=== PATIENT | female | born 1995 | race Caucasian/White ===

== ENCOUNTER 2018-06-23 15:08 | Observation (INO) | payer BC ==
[2018-06-23] MEDS ORDERED: Famotidine 20 MG/2 ML SDV IVPUSH ONE (15:09)
[2018-06-23] MEDS ORDERED: Sodium Chloride 0.9% 10 ML Syringe FLUSH PRN ×2 (15:09→17:01)
--- NOTE | 2018-06-23 15:09 | EDM.PDOC ---
ED HPI GENERAL MEDICAL PROBLEM - General Chief Complaint: Syncope Stated Complaint: Syncope with possible seizure Time Seen by Provider: 06/23/18 15:09 Source of Information: Reports: Patient, Family (Maternal aunt, Saumya), Old Records ([facility] EMR. 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 The laundry room was not apparently overheated with the patient somewhat nauseous since yesterday with nonspecific intermittent right lower quadrant abdominal pain since yesterday afternoon. Per draw hand and halfway staff patient was somewhat diaphoretic with patient having a heart flutter sensation and postictal sedation after the above episode. The patient is a somewhat poor historian secondary to her current postictal sedation. The nursing staff did not notice any seizure activity or urine/stool incontinence with the patient now complaining of a 7/10 generalized headache and nausea. She does have a history of recurrent migraine headaches associated with apparent recurrent syncopal episodes in the past with no significant workup to this point other than apparent negative CT scans of the head. The patient denies any chest pain/ pressure, heart flutter, dizziness, orthostasis, orthopnea, diaphoresis, paresthesias, recent decreased exercise tolerance, or any other anginal-type symptoms. No recent history of heartburn, emesis, diarrhea, melena, gross hematochezia, or any food intolerance, including fatty foods, etc. with no abdominal pain at this time. She also denies any current colic, gross hematuria , or other UTI symptoms. The patient also denies any recent fever, cough, wheezing, dyspnea, etc.. No apparent history of significant fall, injury, neck/ back pain, paresthesias, or other change in her neurological status. Note no treatment in route by the paramedics. Stat Accu-Chek at the halfway by halfway staff was 72 mg percent. Onset: Today, Sudden, Unknown/Unsure Onset Date: 06/23/18 Onset Time: 14:30 Duration: Improving, Other (Duration of loss of consciousness unknown) Location: Reports: Head (Headache), Generalized. Denies: Face, Neck, Chest, Abdomen, Back, Pelvis, Upper Extremity, Left, Upper Extremity, Right, Radiates to Quality: Reports: Same as Previous Episode, Throbbing Severity: Moderate Improves with: Reports: None Worsens with: Reports: None Context: Reports: Other (As above). Denies: Sick Contact, Trauma Associated Symptoms: Reports: Confusion (Postictal sedation), Diaphoresis, Headaches, Malaise, Nausea/Vomiting, Seizure (Possible), Syncope. Denies: Chest Pain, Cough, Fever/Chills, Loss of Appetite, Shortness of Breath, Weakness Treatments ENGINEER PROCESS: Reports: Other (see below) (None) Bilateral Headache Pain Score (Numeric/FACES): 7 - Related Data Allergies Allergy/AdvReac Type Severity Reaction Status Date / Time bee venom protein (honey bee) Allergy Anaphylactic Verified 06/23/18 15:11 Shock Home Meds: Home Meds Non-Formulary Medication [NF Drug] 1 applicful VAG ASDIRECTED 06/23/18 [History] Triamcinolone Acetonide [Triamcinolone Acetonide 0.1% Crm] 1 applic .XX BID PRN 06/23/18 [History] Past Medical History HEENT History: Reports: Allergic Rhinitis, Impaired Vision, Otitis Media, Other (See Below). Denies: Glaucoma, Hard of Hearing, Macular Degeneration, Retinal Detachment Other HEENT History: Patient wears glasses with right-sided strabismus divergence corrected with glasses. Allergic rhinitis to "everything." Recurrent otitis media with surgeries as below. Cardiovascular History: Reports: Arrhythmia, Heart Murmur, Syncope, Other (See Below). Denies: Afib, Aneurysm, Blood Clots/VTE/DVT, CAD, High Cholesterol, Hypertension, [place], PVD Other Cardiovascular History: Recurrent syncope possibly secondary to undiagnosed seizure activity versus migraine equivalent. The patient does have a history of recurrent nonspecific probable functional murmur and possible sinus arrhythmia? She does not know her cholesterol status. Respiratory History: Reports: Bronchitis, Recurrent, Intubation, Previous, Other (See Below). Denies: Asthma, Intubation, Difficult, PE, Pneumothorax, Sleep Apnea Other Respiratory History: Reactive airway disease secondary to infection with apparent negative workup for asthma. Gastrointestinal History: Reports: Other (See Below). Denies: Celiac Disease, Cholelithiasis, Chronic Constipation, Chronic Diarrhea, Fecal Incontinence, Gastritis, GERD, GI Bleed, Hepatitis, Hiatal Hernia, Irritable Bowel Syndrome, Jaundice, Pancreatitis, PUD Other Gastrointestinal History: Chronic intermittent abdominal migraines Genitourinary History: Reports: UTI, Recurrent. Denies: Acute Renal Failure, Chronic Renal Insuffiency, Renal Calculus, STD, Urinary Incontinence DEVELOPMENT PROFESSIONAL History: Reports: Dysfunctional Uterine Bleeding. Denies: Endometriosis , Fibroids, Spontaneous : 0 LMP (Approximate): Other (See Below) (LMP unknown; history of ovarian cysts.) Musculoskeletal History: Reports: Arthritis, Back Pain, Chronic, Osteoarthritis. Denies: Fracture, Gout, Neck Pain, Chronic, RA, SLE Neurological History: Reports: Headaches, Chronic, Migraines, Seizure, Other ( See Below). Denies: Cerebral Aneurysms, Concussion, CVA, Head Trauma, MS, Parkinson's, TIA Other Neuro History: Questionable recurrent seizures with limited negative workup to this point as above starting at about age 15. Psychiatric History: Reports: Anxiety, Depression, PTSD. Denies: Abuse, Victim of, ADD, ADHD, Addiction, Psych Hospitalization(s), Suicide Attempt, Suicidal Ideation Endocrine/Metabolic History: Reports: Obesity/BMI 30+, Other (See Below). Denies: Diabetes, Type I, Diabetes, Type II, Hypothyroidism, IDDM Other Endocrine/Metabolic History: Unknown type of sugar disorder-hypoglycemia versus glucose intolerance? Hematologic History: Reports: None. Denies: Anemia, Blood Transfusion(s), Heparin Induced Thrombocytopenia Immunologic History: Reports: None. Denies: AIDS, HIV, SLE Oncologic (Cancer) History: Reports: None. Denies: Basal Cell Carcinoma, Breast , Cervix, Hodgkin's Lymphoma, Leukemia, Lymphoma, Malignant Melanoma, Non- Hodgkin's Lymphoma, Squamous Cell Carcinoma Dermatologic History: Reports: Psoriasis, Other (See Below). 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 - Infectious Disease History Infectious Disease History: Reports: Chicken Pox, Shingles. Denies: C-Difficile , Measles, Meningitis, Mononucleosis, MRSA, Mumps, Pertussis (Whooping Cough), Rubella, Scarlet Fever, TB, VRE - Past Surgical History Head Surgeries/Procedures: Reports: None HEENT Surgical History: Reports: Myringotomy w Tube(s), Other (See Below). Denies: Adenoidectomy, Cataract Surgery, Eye Surgery, Laser Surgery, LASIK, Naso -Sinus Surgery, Oral Surgery, Tonsillectomy Other HEENT Surgeries/Procedures: PE tubes as an then at age 8 and then at age 18. Cardiovascular Surgical History: Reports: None. Denies: Varicose Respiratory Surgical History: Reports: None. Denies: Thoracentesis GI Surgical History: Reports: None. Denies: Appendectomy, Cholecystectomy, Colonoscopy, EGD, Hernia, Abdominal, Hernia, Inguinal, Hernia Repair/Other Female Surgical History: Reports: None. Denies: Breast Biopsy, D&C, Tubal Ligation Endocrine Surgical History: Reports: None. Denies: Thyroid Biopsy Neurological Surgical History: Denies: C-Spine, Discectomy, Laminectomy, Lumbar Spine, Sacral Spine, Spinal Fusion, Thoracic Spine, Vertebroplasty Musculoskeletal Surgical History: Reports: None. Denies: Arthroscopic Procedure , Carpal Tunnel, Ganglion Cyst, Joint Replacement, ORIF, Shoulder Surgery Oncologic Surgical History: Reports: None Dermatological Surgical History: Reports: None - Past Imaging History Past Imaging History: Reports: CAT Scan (Apparent multiple previous negative CT scans of the head), PFT (At age 8), Ultrasound (Pelvic ultrasound on 02/06/16) Social & Family History - Family History HEENT: Reports: None. Denies: Glaucoma, Macular Degeneration, Retinal Detachment Cardiac: Reports: Syncope, Other (See Below). Denies: Afib, Aneurysm, Arrhythmia, Blood Clots/VTE/DVT, CAD, Heart Failure, Heart Murmur, High Cholesterol, Hypertension, PVD/COD Other Cardiac Family History: Sister, maternal grandmother, and maternal aunt with history of recurrent syncopal episodes/fainting episodes possibly from seizures. Respiratory: Reports: Asthma, COPD, Sleep Apnea, Other (See Below). Denies: PE , Pneumothorax Other Respiratory Family Hisory: Asthma in maternal uncle. Maternal aunt with COPD and sleep apnea. GI: Reports: Irritable Bowel Syndrome, Other (See Below). Denies: Celiac Disease, Cholelithiasis, Colon Polyps, GERD, GI bleed, Inflammatory Bowel Disease, PUD Other GI Family History: Irritable bowel bowel syndrome in maternal aunt. : Reports: Dialysis, Renal Disease/Insufficiency. Denies: Renal Calculus Other Family History: Paternal grandfather with renal failure and dialysis. OBGYN: Reports: Endometriosis, Other (See Below). Denies: Recurrent Spontaneous Other OBGYN Family History: Maternal aunt with endometriosis. Musculoskeletal: Reports: None. Denies: Gout, RA, SLE Neurological: Reports: CVA, Migraines, Seizure, Other (See Below). Denies: Alzheimers Disease, Cerebral Aneurysms, Dementia, MS, Parkinson's, TIA Other Neurological Family History: Maternal uncle with migraine headaches. Maternal uncle with CVA. Recurrent seizure disorder in mother, maternal grandmother, and maternal aunt. Psychiatric: Reports: Anxiety, Bipolar, Depression, Psych Hospitalization(s), Suicide Attempt, Other (See Below). Denies: Abuse, Victim of, ADD, ADHD, Psychosis, PTSD, Schizophrenia Other Psychiatric Family History: Parents with anxiety depression disorder with mother having bipolar disorder and both parents having suicidal ideation and psychiatric hospitalization. Endocrine/Metabolic: Reports: Diabetes, type II, IDDM, Other (See Below). Denies: Diabetes, Gestational, Diabetes, Type I, Diabetes Mellitus, Type 3c, Hypothyroidism Other Endocrine/Metabolic Family History: Paternal also with IDDM. Hematologic: Reports: None. Denies: Anemia, SLE Immunologic: Reports: None. Denies: AIDS, HIV, SLE Dermatologic: Reports: Other (See Below) Other Dermatologic Family History: Maternal aunt and cousin with is lichen planus. Oncologic: Reports: Breast, Lung, Other (See Below). Denies: Cervix, Colon, Hodgkin's Lymphoma, Leukemia, Lymphoma, Non-Hodgkin's Lymphoma, Ovarian, Skin, Uterine Other Oncologic Family History: Maternal Aunt with breast cancer. Maternal grandmother with lung cancer with history of tobacco use. - Tobacco Use Smoking Status *Q: Never Smoker Tobacco Use Within Last Twelve Months: No Used Tobacco, but Quit: No Smoking Cessation Information Provided To Patient: No Second Hand Smoke Exposure: No Second Hand Smoke Education Provided: No - Caffeine Use Caffeine Use: Reports: Soda (5 sodas per week), Tea (1 glass per week). Denies : Coffee, Energy Drinks - Alcohol Use Alcohol Use History: No Days Per Week of Alcohol Use: 0 Number of Drinks Per Day: 1 Number of Drinks Per Day Comment: Usually wine 3 times per month. No previous DWIs, problems with alcohol abuse, etc. Total Drinks Per Week: 0 Alcohol Use in Last Twelve Months: Yes Alcohol Use Frequency: Rarely - Recreational Drug Use Recreational Drug Type: Reports: Marijuana/Hashish (Started at age 18 and uses daily, 1 bowl per day). 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 ED EXAM, NEURO - Physical Exam Exam: See Below Exam Limited By: Altered Mental Status (Postictal sedation) General Appearance: No Apparent Distress, Anxious (Mild), Lethargic (Mildly) Eye Exam: Bilateral Eye: EOMI, Normal Fundi, Normal Inspection (No nystagmus. Patient wearing glasses) Ears: Normal External Exam, Normal Canal, Hearing Grossly Normal, Normal TMs Nose: Normal Inspection, Normal Mucosa, No Blood Throat/Mouth: Normal Inspection, Normal Lips, Normal Teeth, Normal Gums, Normal Oropharynx, Normal Voice, No Airway Compromise. No: Dysphagia, Perioral Cyanosis Head Exam: Atraumatic, Normocephalic. No: Facial Swelling, Facial Tenderness, Sinus Tenderness Neck: Normal Inspection, Supple, Non-Tender, Full Range of Motion. No: Carotid Bruit, Lymphadenopathy (L), Lymphadenopathy (R), Thyromegaly Respiratory/Chest: No Respiratory Distress, Lungs Clear, Normal Breath Sounds, No Accessory Muscle Use, Chest Non-Tender. No: Pleural Rub, Retractions Cardiovascular: Normal Peripheral Pulses, Regular Rate, Rhythm, No Edema, No Gallop, No JVD, No Murmur, No Rub. No: Gallop/S3, Gallop/S4, Friction Rub GI/Abdominal: Normal Bowel Sounds, Soft, Non-Tender, No Organomegaly, No Distention, No Abnormal Bruit, No Mass, Pelvis Stable, Other (Scars from periumbilical studs). No: Guarding (Female) Exam: Deferred Rectal (Female) Exam: Deferred Neurological: Normal Dorsiflexion, CN II-XII Intact, Normal Plantar Flexion, Normal Reflexes (Negative Babinski's, finger to nose, and pronator rotation tests. No evidence of facial paresis, tongue deviation, orthostasis, etc.. Excellent reverse thought processes.), Other (Mild postictal sedation improving during emergency room evaluation) Back Exam: Normal Inspection, Full Range of Motion. No: CVA Tenderness (L), CVA Tenderness (R), Muscle Spasm Extremities: Normal Inspection, Normal Range of Motion, Non-Tender, No Pedal Edema, Normal Capillary Refill. No: Quinton's Sign Psychiatric: Anxious (Mild), Depressed Mood (Borderline) Skin Exam: Warm, Dry, Intact, Normal Color, No Rash. No: Diaphoretic, Jaundice , Pallor, Wound/Incision EKG INTERPRETATION EKG Date: 06/23/18 Time: 15:48 Rhythm: NSR Rate (Beats/Min): 66 [place]: Normal (Neutral cardiac axis) P-Wave: Present QRS: Normal (QRS is 0.09 seconds with T-wave inversion in leads V1 and possibly lead 3) ST-T: Normal QT: Normal NM/PQ Interval: NM interval of 0.23 seconds representing a first degree AV block with mild poor R-wave progression in the anterior leads. Comparison: NA - No Prior EKG EKG Interpretation Comments: 1. No acute ischemic changes 2. First-degree AV block Course - Vital Signs Last Recorded V/S: Last Vital Signs Temp 36.8 C 06/23/18 15:33 Pulse 60 06/23/18 16:21 Resp 22 H 06/23/18 16:21 BP 124/65 06/23/18 16:21 Pulse Ox 98 06/23/18 16:21 Vital Signs - 24 hr 06/23/18 06/23/18 06/23/18 15:10 15:32 15:33 Temperature [ 36.8 C Temporal] Pulse, 68 64 92 Peripheral [ Right Pulse Oximetry] Respiratory 18 20 18 Rate Blood Pressure 120/56 L 136/60 129/84 [Right Upper Arm] O2 Sat by Pulse 100 98 100 Oximetry 06/23/18 06/23/18 15:47 16:21 Temperature [ Temporal] Pulse, 64 60 Peripheral [ Right Pulse Oximetry] Respiratory 20 22 H Rate Blood Pressure 120/56 L 124/65 [Right Upper Arm] O2 Sat by Pulse 99 98 Oximetry - Orders/Labs/Meds Orders: Active Orders 24 hr Category Date Time Status Cardiac Monitoring [RC] STAT Care 06/23/18 15:10 Active EKG Documentation Completion [RC] ASDIRECTED Care 06/23/18 15:10 Active NIH Stroke Scale [RC] ASDIRECTED Care 06/23/18 15:10 Active Oxygen Therapy, ED [RC] PRN Care 06/23/18 15:10 Active Peripheral IV Care [RC] . DIRECTED Care 06/23/18 15:10 Active Pulse Oximetry [RC] CONTINUOUS Care 06/23/18 15:10 Active Up With Assistance [RC] ASDIRECTED Care 06/23/18 15:10 Active Vital Signs [RC] PFP Care 06/23/18 15:10 Active Nothing per Oral Now Diet [DIET] Diet 06/23/18 Breakfast Active Chest 1V Frontal [CR] Stat Exams 06/23/18 15:10 Taken Head wo Cont [CT] Stat Exams 06/23/18 15:10 Taken CULTURE URINE [RM] Routine Lab 06/23/18 16:10 Received DRUG SCREEN, URINE [URCHEM] Stat Lab 06/23/18 16:10 Ordered PROLACTIN [REF] Stat Lab 06/23/18 15:15 Received UA W/MICROSCOPIC [URIN] Stat Lab 06/23/18 16:10 Ordered Sodium Chloride 0.9% [Saline Flush] Med 06/23/18 15:09 Active 10 ml FLUSH ASDIRECTED PRN Obtain Past Medical Record [OM.PC] Stat Oth 06/23/18 15:10 Active Peripheral IV Insertion Adult [OM.PC] Stat Oth 06/23/18 15:10 Ordered Resuscitation Status Stat Resus Stat 06/23/18 15:09 Ordered Medication Orders Sodium Chloride (Saline Flush) 10 ml FLUSH ASDIRECTED PRN PRN Reason: Keep Vein Open Labs: Laboratory Tests 06/23/18 06/23/18 06/23/18 Range/Units 15:11 15:15 15:15 WBC 10.9 H (4.0-10.2) K/uL RBC 4.75 (3.77-5.09) M/uL Hgb 14.1 (11.7-15.5) g/dL Hct 42.4 (34.0-46.0) % MCV 89.3 (84.0-98.0) fL MCH 29.7 (28.2-33.3) pg MCHC 33.3 (31.7-36.0) g/dL RDW 13.1 (11.2-14.1) % Plt Count 250 (150-350) K/uL Neut % (Auto) 67.3 (45.0-80.0) % Lymph % (Auto) 21.4 (10.0-50.0) % [place] % (Auto) 9.3 (2.0-14.0) % Eos % (Auto) 1.7 (0.0-5.0) % Baso % (Auto) 0.3 (0.0-2.0) % Neut # (Auto) 7.32 H (1.40-7.00) K/uL Lymph # (Auto) 2.33 (0.50-3.50) K/uL [place] # (Auto) 1.01 H (0.00-1.00) K/uL Eos # (Auto) 0.19 (0.00-0.50) K/uL Baso # (Auto) 0.03 (0.00-0.20) K/uL PT 10.8 (9.8-11.7) SEC INR 1.0 APTT 25.2 (22.1-29.8) SEC D-Dimer, Quantitative (0-400) ng/mL Sodium (136-145) mmol/L Potassium (3.5-5.1) mmol/L Chloride (98-107) mmol/L Carbon Dioxide (21.0-32.0) mmol/L BUN (7-18) mg/dL Creatinine (0.51-1.17) mg/dL Est Cr Clr Drug Dosing mL/min Estimated GFR (MDRD) mL/min Glucose (74-106) mg/dL Lactic Acid (0.4-2.0) mmol/L Uric Acid (2.6-7.2) mg/dL Calcium (8.5-10.1) mg/dL Magnesium (1.8-2.4) mg/dL Total Bilirubin (0.2-1.0) mg/dL AST (15-37) U/L ALT (12-78) U/L Alkaline Phosphatase (46-116) IU/L Creatine Kinase (26-308) U/L Creatine Kinase Index (0.0-2.5) % CK-MB (CK-2) (0.00-3.60) ng/mL Troponin I (0.000-0.056) ng/mL NT-Pro-B Natriuret Pep (0-125) pg/mL Total Protein (6.4-8.2) g/dL Albumin (3.4-5.0) g/dL Amylase (25-115) U/L Lipase (73-393) U/L TSH, Ultra Sensitive (0.358-3.740) mIU/mL HCG, Qual (NEGATIVE) Specimen Type Urine Color Urine Appearance Urine pH (5.0-9.0) Ur Specific [place] (1.005-1.030) Urine Protein (NEGATIVE) mg/dL Urine Glucose (UA) (NEGATIVE) mg/dL Urine Ketones (NEGATIVE) mg/dL Urine Occult Blood (NEGATIVE) Urine Nitrite (NEGATIVE) Urine Bilirubin (NEGATIVE) Urine Urobilinogen (0.2-1.0) E.U./dL Ur Leukocyte Esterase (NEGATIVE) Urine RBC /HPF Urine WBC /HPF Ur Epithelial Cells /LPF Amorphous Sediment (0/HPF) /HPF Urine Bacteria (NONE TO FEW) /HPF Urine Mucus (NEGATIVE) /LPF Urine Opiates Screen (NEGATIVE) Urine Methadone Screen (NEGATIVE) U Acetaminophen Screen (NEGATIVE) Ur Barbiturates Screen (NEGATIVE) Ur Tricyclics Screen (NEGATIVE) Ur Phencyclidine Scrn (NEGATIVE) Ur Amphetamine Screen (NEGATIVE) U Methamphetamines Scrn (NEGATIVE) U Benzodiazepines Scrn (NEGATIVE) U Cocaine Metab Screen (NEGATIVE) U Marijuana (THC) Screen (NEGATIVE) Ethyl Alcohol 0.000 (0.000-0.080) g/dL 06/23/18 06/23/18 06/23/18 Range/Units 15:15 15:15 15:15 WBC (4.0-10.2) K/uL RBC (3.77-5.09) M/uL Hgb (11.7-15.5) g/dL Hct (34.0-46.0) % MCV (84.0-98.0) fL MCH (28.2-33.3) pg MCHC (31.7-36.0) g/dL RDW (11.2-14.1) % Plt Count (150-350) K/uL Neut % (Auto) (45.0-80.0) % Lymph % (Auto) (10.0-50.0) % [place] % (Auto) (2.0-14.0) % Eos % (Auto) (0.0-5.0) % Baso % (Auto) (0.0-2.0) % Neut # (Auto) (1.40-7.00) K/uL Lymph # (Auto) (0.50-3.50) K/uL [place] # (Auto) (0.00-1.00) K/uL Eos # (Auto) (0.00-0.50) K/uL Baso # (Auto) (0.00-0.20) K/uL PT (9.8-11.7) SEC INR APTT (22.1-29.8) SEC D-Dimer, Quantitative < 100 (0-400) ng/mL Sodium 138 (136-145) mmol/L Potassium 4.0 (3.5-5.1) mmol/L Chloride 104 (98-107) mmol/L Carbon Dioxide 27.7 (21.0-32.0) mmol/L BUN 11 (7-18) mg/dL Creatinine 0.65 (0.51-1.17) mg/dL Est Cr Clr Drug Dosing 107.37 mL/min Estimated GFR (MDRD) > 60 mL/min Glucose 93 (74-106) mg/dL Lactic Acid 1.1 (0.4-2.0) mmol/L Uric Acid 3.0 (2.6-7.2) mg/dL Calcium 9.1 (8.5-10.1) mg/dL Magnesium 1.7 L (1.8-2.4) mg/dL Total Bilirubin 0.3 (0.2-1.0) mg/dL AST 15 (15-37) U/L ALT 18 (12-78) U/L Alkaline Phosphatase 68 (46-116) IU/L Creatine Kinase 72 (26-308) U/L Creatine Kinase Index 0.6 (0.0-2.5) % CK-MB (CK-2) 0.40 (0.00-3.60) ng/mL Troponin I 0.000 (0.000-0.056) ng/mL NT-Pro-B Natriuret Pep 26 (0-125) pg/mL Total Protein 7.6 (6.4-8.2) g/dL Albumin 3.6 (3.4-5.0) g/dL Amylase 34 (25-115) U/L Lipase 105 (73-393) U/L TSH, Ultra Sensitive 0.804 (0.358-3.740) mIU/mL HCG, Qual (NEGATIVE) Specimen Type Urine Color Urine Appearance Urine pH (5.0-9.0) Ur Specific [place] (1.005-1.030) Urine Protein (NEGATIVE) mg/dL Urine Glucose (UA) (NEGATIVE) mg/dL Urine Ketones (NEGATIVE) mg/dL Urine Occult Blood (NEGATIVE) Urine Nitrite (NEGATIVE) Urine Bilirubin (NEGATIVE) Urine Urobilinogen (0.2-1.0) E.U./dL Ur Leukocyte Esterase (NEGATIVE) Urine RBC /HPF Urine WBC /HPF Ur Epithelial Cells /LPF Amorphous Sediment (0/HPF) /HPF Urine Bacteria (NONE TO FEW) /HPF Urine Mucus (NEGATIVE) /LPF Urine Opiates Screen (NEGATIVE) Urine Methadone Screen (NEGATIVE) U Acetaminophen Screen (NEGATIVE) Ur Barbiturates Screen (NEGATIVE) Ur Tricyclics Screen (NEGATIVE) Ur Phencyclidine Scrn (NEGATIVE) Ur Amphetamine Screen (NEGATIVE) U Methamphetamines Scrn (NEGATIVE) U Benzodiazepines Scrn (NEGATIVE) U Cocaine Metab Screen (NEGATIVE) U Marijuana (THC) Screen (NEGATIVE) Ethyl Alcohol (0.000-0.080) g/dL 06/23/18 06/23/18 06/23/18 Range/Units 15:15 16:10 16:10 WBC (4.0-10.2) K/uL RBC (3.77-5.09) M/uL Hgb (11.7-15.5) g/dL Hct (34.0-46.0) % MCV (84.0-98.0) fL MCH (28.2-33.3) pg MCHC (31.7-36.0) g/dL RDW (11.2-14.1) % Plt Count (150-350) K/uL Neut % (Auto) (45.0-80.0) % Lymph % (Auto) (10.0-50.0) % [place] % (Auto) (2.0-14.0) % Eos % (Auto) (0.0-5.0) % Baso % (Auto) (0.0-2.0) % Neut # (Auto) (1.40-7.00) K/uL Lymph # (Auto) (0.50-3.50) K/uL [place] # (Auto) (0.00-1.00) K/uL Eos # (Auto) (0.00-0.50) K/uL Baso # (Auto) (0.00-0.20) K/uL PT (9.8-11.7) SEC INR APTT (22.1-29.8) SEC D-Dimer, Quantitative (0-400) ng/mL Sodium (136-145) mmol/L Potassium (3.5-5.1) mmol/L Chloride (98-107) mmol/L Carbon Dioxide (21.0-32.0) mmol/L BUN (7-18) mg/dL Creatinine (0.51-1.17) mg/dL Est Cr Clr Drug Dosing mL/min Estimated GFR (MDRD) mL/min Glucose (74-106) mg/dL Lactic Acid (0.4-2.0) mmol/L Uric Acid (2.6-7.2) mg/dL Calcium (8.5-10.1) mg/dL Magnesium (1.8-2.4) mg/dL Total Bilirubin (0.2-1.0) mg/dL AST (15-37) U/L ALT (12-78) U/L Alkaline Phosphatase (46-116) IU/L Creatine Kinase (26-308) U/L Creatine Kinase Index (0.0-2.5) % CK-MB (CK-2) (0.00-3.60) ng/mL Troponin I (0.000-0.056) ng/mL NT-Pro-B Natriuret Pep (0-125) pg/mL Total Protein (6.4-8.2) g/dL Albumin (3.4-5.0) g/dL Amylase (25-115) U/L Lipase (73-393) U/L TSH, Ultra Sensitive (0.358-3.740) mIU/mL HCG, Qual Negative (NEGATIVE) Specimen Type [place] Urine Color Yellow Urine Appearance Clear Urine pH 7.5 (5.0-9.0) Ur Specific [place] 1.025 (1.005-1.030) Urine Protein 30 H (NEGATIVE) mg/dL Urine Glucose (UA) Negative (NEGATIVE) mg/dL Urine Ketones Negative (NEGATIVE) mg/dL Urine Occult Blood Trace-intact H (NEGATIVE) Urine Nitrite Negative (NEGATIVE) Urine Bilirubin Negative (NEGATIVE) Urine Urobilinogen 0.2 (0.2-1.0) E.U./dL Ur Leukocyte Esterase Negative (NEGATIVE) Urine RBC 0-5 /HPF Urine WBC 0-5 /HPF Ur Epithelial Cells Many H /LPF Amorphous Sediment Moderate H (0/HPF) /HPF Urine Bacteria Moderate H (NONE TO FEW) /HPF Urine Mucus Moderate H (NEGATIVE) /LPF Urine Opiates Screen Negative (NEGATIVE) Urine Methadone Screen Negative (NEGATIVE) U Acetaminophen Screen Negative (NEGATIVE) Ur Barbiturates Screen Negative (NEGATIVE) Ur Tricyclics Screen Negative (NEGATIVE) Ur Phencyclidine Scrn Negative (NEGATIVE) Ur Amphetamine Screen Negative (NEGATIVE) U Methamphetamines Scrn Negative (NEGATIVE) U Benzodiazepines Scrn Negative (NEGATIVE) U Cocaine Metab Screen Negative (NEGATIVE) U Marijuana (THC) Screen Positive H (NEGATIVE) Ethyl Alcohol (0.000-0.080) g/dL Meds: Medications Generic Name Dose Route Start Last Admin Trade Name Freq PRN Reason Stop Dose Admin Sodium Chloride 10 ml 06/23/18 15:09 Saline Flush FLUSH ASDIRECTED PRN Keep Vein Open Discontinued Medications Generic Name Dose Route Start Last Admin Trade Name Freq PRN Reason Stop Dose Admin Famotidine 40 mg 06/23/18 15:09 06/23/18 15:22 Pepcid IVPUSH 06/23/18 15:10 40 mg ONETIME ONE Administration Ondansetron HCl 4 mg 06/23/18 15:12 06/23/18 15:22 Zofran IVPUSH 06/23/18 15:13 4 mg ONETIME ONE Administration - Radiology Interpretation Free Text/Narrative:: monitoring specialist shows normal sinus rhythm with average heart 60s with occasional mild borderline sinus bradycardia in the high 50s. No ectopy or arrhythmia. Chest x-ray, portable, shows moderate cardiomegaly with probable pulmonary obstructive disease but no significant pulmonary infiltrates, CHF, pneumothorax , etc. Note mildly elevated right hemidiaphragm. Radiological report of CT of the head without contrast negative for acute findings other than borderline possible left mastoid opacification. Note that verbal report was not previously received despite her previous request Departure - Departure Time of Disposition: 16:40 Disposition: Refer to Observation Condition: Good Clinical Impression: Seizure disorder, Illicit drug use, continuous, Mixed anxiety depressive disorder, First degree AV block, Hypomagnesemia Syncopal episodes Qualifiers: Syncope type: unspecified Qualified Code(s): R55 - Syncope and collapse Migraine headache Qualifiers: Migraine type: without aura Status migrainosus presence: without status migrainosus Intractability: not intractable Qualified Code(s): G43.009 - Migraine without aura, not intractable, without status migrainosus - Discharge Information *PRESCRIPTION DRUG MONITORING PROGRAM REVIEWED*: Not Applicable *COPY OF PRESCRIPTION DRUG MONITORING REPORT IN PATIENT LUCÍA: Not Applicable Referrals: PCP,Unknown [Primary Care Provider] - Forms: ED Department Discharge Care Plan Goals: See plan - Problem List & Annotations (1) Seizure disorder SNOMED Code(s): 684683598 Code(s): G40.909 - EPILEPSY, UNSP, NOT INTRACTABLE, WITHOUT STATUS EPILEPTICUS Status: Acute Priority: High Current Visit: No Onset Date: 06/23/18 Annotation/Comment:: Probable unwitnessed seizure with history of recurrent possible seizure disorder since age 15 as above. Maternal aunt did apparently witness a true seizure in August 2017 with no physician evaluation at that time. Neurology consultation [facility] on an outpatient basis, including recommended EEG, etc. Patient will be placed on injury and driving restrictions until released by her regular providers secondary to strongly suspected seizures. No additional antiepileptic medications at this time until neurological workup can be completed, however. Note mild leukocytosis likely secondary to stress reaction. Prolactin level drawn with results pending. (2) Syncopal episodes SNOMED Code(s): 991730599 Code(s): R55 - SYNCOPE AND COLLAPSE Status: Acute Priority: High Current Visit: No Onset Date: 06/23/18 Annotation/Comment:: Long history of recurrent syncope as above. Note that this is likely secondary to her seizure disorder with further cardiology workup depending on her clinical course as below. No significant fall or injury from today's episode. Qualifiers: Syncope type: unspecified Qualified Code(s): R55 - Syncope and collapse (3) First degree AV block SNOMED Code(s): 018046003 Code(s): I44.0 - ATRIOVENTRICULAR BLOCK, FIRST DEGREE Status: Acute Priority: High Current Visit: No Onset Date: 06/23/18 Annotation/Comment: : Newly diagnosed screen AV block with no medications explaining etiology of this disorder. Note no chest pain or anginal type symptoms with chest pain protocol not initiated in the emergency room. EKG to be repeated in the a.m. with serial cardiac enzymes as per standard protocol. Secondary to recurrent syncope and echocardiogram should be conducted [facility] on an outpatient basis. Consider cardiology consultation and/or further cardiac workup depending on her clinical course. 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 Symptomatic relief will be initiated on admission with continuation of neurological checks with vitals. Initiate magnesium oxide therapy as below. Qualifiers: Migraine type: without aura Status migrainosus presence: without status migrainosus Intractability: not intractable Qualified Code(s): G43.009 - Migraine without aura, not intractable, without status migrainosus (5) Hypomagnesemia SNOMED Code(s): 998393704 Code(s): E83.42 - HYPOMAGNESEMIA Status: Acute Priority: Medium Current Visit: No Onset Date: 06/23/18 Annotation/Comment:: Initiate magnesium oxide therapy on admission, which she also be beneficial for her migraines. (6) Illicit drug use, continuous SNOMED Code(s): 362327858 Code(s): F19.90 - OTHER PSYCHOACTIVE SUBSTANCE USE, UNSPECIFIED, UNCOMPLICATED Status: Chronic Priority: Medium Current Visit: No Annotation/Comment:: Cessation of illicit drug use J[facility] strongly recommended. (7) Mixed anxiety depressive disorder SNOMED Code(s): 162658434 Code(s): F41.8 - OTHER SPECIFIED ANXIETY DISORDERS Status: Chronic Priority: Medium Current Visit: No Annotation/Comment:: Mild to moderate control based on today's exam. Continue to closely by her regular providers. - Problem List Review Problem List Initiated/Reviewed/Updated: Yes - My Orders Last 24 Hours: My Active Orders 06/23/18 15:09 Sodium Chloride 0.9% [Saline Flush] 10 ml FLUSH ASDIRECTED PRN Resuscitation Status Stat 06/23/18 15:10 Cardiac Monitoring [RC] STAT EKG Documentation Completion [RC] ASDIRECTED NIH Stroke Scale [RC] ASDIRECTED Oxygen Therapy, ED [RC] PRN Peripheral IV Care [RC] . DIRECTED Pulse Oximetry [RC] CONTINUOUS Up With Assistance [RC] ASDIRECTED Vital Signs [RC] PFP Chest 1V Frontal [CR] Stat Head wo Cont [CT] Stat Obtain Past Medical Record [OM.PC] Stat Peripheral IV Insertion Adult [OM.PC] Stat 06/23/18 15:15 PROLACTIN [REF] Stat 06/23/18 16:10 CULTURE URINE [RM] Routine DRUG SCREEN, URINE [URCHEM] Stat UA W/MICROSCOPIC [URIN] Stat 06/23/18 Breakfast Nothing per Oral Now Diet [DIET] - Assessment/Plan Admission H&P: Please use this note as an admission H&P Last 24 Hours: My Active Orders 06/23/18 15:09 Sodium Chloride 0.9% [Saline Flush] 10 ml FLUSH ASDIRECTED PRN Resuscitation Status Stat 06/23/18 15:10 Cardiac Monitoring [RC] STAT EKG Documentation Completion [RC] ASDIRECTED NIH Stroke Scale [RC] ASDIRECTED Oxygen Therapy, ED [RC] PRN Peripheral IV Care [RC] . DIRECTED Pulse Oximetry [RC] CONTINUOUS Up With Assistance [RC] ASDIRECTED Vital Signs [RC] PFP Chest 1V Frontal [CR] Stat Head wo Cont [CT] Stat Obtain Past Medical Record [OM.PC] Stat Peripheral IV Insertion Adult [OM.PC] Stat 06/23/18 15:15 PROLACTIN [REF] Stat 06/23/18 16:10 CULTURE URINE [RM] Routine DRUG SCREEN, URINE [URCHEM] Stat UA W/MICROSCOPIC [URIN] Stat 06/23/18 Breakfast Nothing per Oral Now Diet [DIET] Assessment:: As above Plan: As above. Extensive precautions were given to the patient and her aunt, who are in agreement with the treatment plan. The patient's condition is stable enough for observation status and general supervision.
[2018-06-23] MEDS ORDERED: Ondansetron 4 MG/2 ML SDV IVPUSH ONE (15:12)
[2018-06-23 15:52] LABS: CHLORIDE,CL 104 mmol/L (98-107); SODIUM,NA 138 mmol/L (136-145)
[2018-06-23] MEDS ORDERED: Temazepam 15 MG Cap PO PRN (17:01)
[2018-06-23] MEDS ORDERED: Ketorolac 30 MG/ML SDV IVPUSH ONE (17:20)
[2018-06-23] MEDS ORDERED: Ketorolac 15 MG/ML SDV IVPUSH PRN (17:21)
[2018-06-23] MEDS ORDERED: traMADol 50 MG Tab PO PRN (17:22)
[2018-06-23] MEDS: Magnesium Oxide 400 MG Tab PO SCH (18:01)
[2018-06-23] MEDS: Acetaminophen 325 MG Tab PO PRN (21:51)
[2018-06-24 07:47] LABS: CHLORIDE,CL 106 mmol/L (98-107); SODIUM,NA 139 mmol/L (136-145)
[2018-06-24] MEDS: Magnesium Oxide 400 MG Tab PO SCH (07:48)
--- NOTE | 2018-06-24 09:22 | PCM.DCSUM1 ---
Discharge Summary - Hospital Course HPI Initial Comments: See emergency room note/admission H&P Brief History: See emergency room note/admission H&P Diagnosis: Stroke: No Modified Edmond Scale: No Symptoms at All Modified Edmond Scale Score: 0 - Discharge Data Discharge Date: 06/24/18 Discharge Disposition: DC/Tfer to Acute Hospital 02 Condition: Good - Discharge Diagnosis/Problem(s) (1) Bradycardia SNOMED Code(s): 95031036 ICD Code: R00.1 - BRADYCARDIA, UNSPECIFIED Status: Acute Priority: High Current Visit: Yes Onset Date: 06/23/18 Problem Details: Severe bradycardia with moderate sinus arrhythmia developing during this hospitalization with lowest heart rate of 37, including the patient not sleeping. The patient was frequently in the low 40s during majority of yesterday evening, once again while awake. Bradycardia is nonsymptomatic at this time with no chest pain, orthostasis etc. as below. Telephone consultation at 08:[address] Singh, chemical maker at [facility], who did feel that further monitoring was required. He did feel that the bradycardia was possibly of neurological etiology and is not related to her current marijuana use. She is not a candidate for pacemaker therapy at this time. Possible further cardiac workup as below. Subsequent telephone consultation at 08:[address] Odom, hospitalist at [facility], who does accept the patient for direct admission, with no further treatment recommendations given. Ambulance transfer with supervisor aluminum fabrication accompaniment. (2) Seizure disorder SNOMED Code(s): 086662045 ICD Code: G40.909 - EPILEPSY, UNSP, NOT INTRACTABLE, WITHOUT STATUS EPILEPTICUS Status: Acute Priority: High Current Visit: No Onset Date: 06/23/18 Problem Details: No evidence of seizure activity during this hospitalization with complete resolution of mild postictal sedation, which also improved during the course of initial emergency room evaluation. Possible neurological etiology of patient's bradycardia as above. Note probable unwitnessed seizure prior to admission with history of recurrent possible seizure disorder since age 15 as above. Maternal aunt did apparently witness a true seizure in August 2017 with no physician evaluation at that time. Neurology consultation advisable during upcoming hospitalization, including recommended EEG, etc. Patient should likely be placed on injury and driving restrictions until released by her chemical maker and neurologist secondary to strongly suspected seizures and bradycardia as above. No additional antiepileptic medications at this time until neurological workup can be completed, however. Note mild leukocytosis likely secondary to stress reaction which is resolved this morning. No evidence of UTI with likely urine contamination. Urine specimen was sent up for culture and sensitivity, however. Prolactin level drawn with results pending. (3) Syncopal episodes SNOMED Code(s): 967510324 ICD Code: R55 - SYNCOPE AND COLLAPSE Status: Acute Priority: High Current Visit: No Onset Date: 06/23/18 Problem Details: Long history of recurrent syncope as above. Note that this is likely secondary to her seizure disorder with further cardiology workup depending on her clinical course as above. No significant fall or injury from yesterday's syncopal episode. Qualifiers: Syncope type: unspecified Qualified Code(s): R55 - Syncope and collapse (4) First degree AV block SNOMED Code(s): 543347665 ICD Code: I44.0 - ATRIOVENTRICULAR BLOCK, FIRST DEGREE Status: Acute Priority: High Current Visit: No Onset Date: 06/23/18 Problem Details: Newly diagnosed screen AV block, which is slightly progressed today with no medications explaining etiology of this disorder. In addition note significant bradycardia and sinus arrhythmia as above. No chest pain or anginal type symptoms with chest pain protocol not initiated in the emergency room. Serial EKGs and cardiac enzymes were negative for acute PA. Secondary to recurrent syncope an echocardiogram should likely be conducted JOSH on an outpatient basis. 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 Note normal neurological checks during this hospitalization. Overall good response to IV Toradol therapy. Magnesium oxide therapy was initiated in admission with this to be continued at discharge. Qualifiers: Migraine type: without aura Status migrainosus presence: without status migrainosus Intractability: not intractable Qualified Code(s): G43.009 - Migraine without aura, not intractable, without status migrainosus (6) Hypomagnesemia SNOMED Code(s): 342472244 ICD Code: E83.42 - HYPOMAGNESEMIA Status: Acute Priority: Medium Current Visit: No Onset Date: 06/23/18 Problem Details: As above. Initiated magnesium oxide therapy on admission, which should also be beneficial for her migraines. (7) Illicit drug use, continuous SNOMED Code(s): 347068752 ICD Code: F19.90 - OTHER PSYCHOACTIVE SUBSTANCE USE, UNSPECIFIED, UNCOMPLICATED Status: Chronic Priority: Medium Current Visit: No Problem Details: Cessation of illicit drug use JOSH strongly recommended. (8) Mixed anxiety depressive disorder SNOMED Code(s): 826227895 ICD Code: F41.8 - OTHER SPECIFIED ANXIETY DISORDERS Status: Chronic Priority: Medium Current Visit: Yes Problem Details: Mild to moderate control based on exam. Continue to closely by her regular providers. (9) Hypoalbuminemia SNOMED Code(s): 987157102 ICD Code: E88.09 - OTH DISORDERS OF PLASMA-PROTEIN METABOLISM, NEC Status: Acute Priority: Medium Current Visit: Yes Onset Date: 06/24/18 Problem Details: Observe for now. Consider high protein Glucerna supplements as snacks at discharge. Note fasting lipid profile and glycosylated hemoglobin were normal today. - Patient Summary/Data Operative Procedure(s) Performed: None Complications: None Consults: Cardiology and hospitalist as above Labs Pending at D/C: 1. Prolactin level 2. Urine culture and sensitivity Recommended Follow-up Testing/Procedures: As above Planned Operative Procedure(s) after DC: None Hospital Course: The patient was admitted to observation status on telemetry with negative workup for acute PA. Note development of significant bradycardia and sinus arrhythmia as above. Otherwise no anginal complaints or return of seizure activity during this hospitalization. Further workup in hospital transfer required as above. - Patient Instructions Diet: Heart Healthy Diet Activity: No Strenuous Activities Driving: Do Not Drive Showering/Bathing: May Shower Notify Provider of: Increased Pain, Nausea and/or Vomiting - Discharge Plan *PRESCRIPTION DRUG MONITORING PROGRAM REVIEWED*: Not Applicable *COPY OF PRESCRIPTION DRUG MONITORING REPORT IN PATIENT LUCÍA: Not Applicable Home Medications: Home Meds Non-Formulary Medication [NF Drug] 1 applicful VAG ASDIRECTED 06/23/18 [History] Triamcinolone Acetonide [Triamcinolone Acetonide 0.1% Crm] 1 applic .XX BID PRN 06/23/18 [History] Escitalopram [Lexapro] 10 mg PO BEDTIME 06/24/18 [History] Patient Handouts: Syncope, Echa-ol-Ujgd, Bradycardia, Adult, Seizure, Adult, Vret-vr-Beht Forms: ED Department Discharge, Interfacility Transfer EMTALA Referrals: PCP,Unknown [Primary Care Provider] - - Discharge Summary/Plan Comment DC Time >30 min.: No (Coordination of care ) Discharge Summary/Plan Comment: As above. Extensive precautions were given to the patient, who is in agreement with the treatment plan. Ambulance transfer with supervisor aluminum fabrication accompaniment as above. - General Info Date of Service: 06/24/18 Admission Dx/Problem (Free Text: 1. Syncopal episode 2. Suspected seizure Subjective Update: Progressive bradycardia and sinus arrhythmia as above. Functional Status: Reports: Pain Controlled, Tolerating Diet, Ambulating, Urinating. Denies: New Symptoms, Incentive Spirometry Numeric/FACES Score: 0 - Review of Systems General: Reports: No Symptoms. Denies: Fever, Weakness, Fatigue, Malaise, Night Sweats, Appetite (Appetite good) HEENT: Reports: No Symptoms. Denies: Ear Pain, Eye Pain, Headaches, Sinus Congestion, Sore Throat, Rhinitis, Visual Changes Pulmonary: Reports: No Symptoms. Denies: Shortness of Breath, Pleuritic Chest Pain, Sputum, Wheezing Cardiovascular: Reports: No Symptoms. Denies: Chest Pain, Palpitations, Dyspnea on Exertion, Orthopnea, PND, Edema, Lightheadedness Gastrointestinal: Reports: No Symptoms, Other (Normal bowel movement yesterday evening). Denies: Abdominal Pain, Constipation, Decreased Appetite, Diarrhea, Difficulty Swallowing, Flatus, Hematochezia, Melena, Nausea, Vomiting Genitourinary: Reports: No Symptoms. Denies: Dysuria, Frequency, Burning, Pain , Urgency, Incontinence, Hematuria, Retention, Flank Pain Musculoskeletal: Reports: No Symptoms. Denies: Neck Pain, Shoulder Pain, Arm Pain, Back Pain, Leg Pain Skin: Reports: No Symptoms. Denies: Diaphoresis Neurological: Reports: No Symptoms. Denies: Confusion, Dizziness, Headache, Paresthesia, Seizure, Syncope, Weakness, Change in Speech Psychiatric: Reports: No Symptoms. Denies: Confusion, Depression, Anxiety, Agitation, Cravings, Hallucinations - Patient Data Vitals - Most Recent: Last Vital Signs Temp 36.5 C 06/24/18 07:37 Pulse 46 L 06/24/18 07:37 Resp 16 06/24/18 07:37 BP 102/43 L 06/24/18 07:37 Pulse Ox 99 06/24/18 07:37 Vital Signs (72 hours) 06/23/18 06/23/18 06/23/18 15:10 15:32 15:33 Temperature [ 36.8 C Temporal] Pulse, 68 64 92 Peripheral [ Right Pulse Oximetry] Respiratory 18 20 18 Rate Blood Pressure 120/56 L 136/60 129/84 [Right Upper Arm] O2 Sat by Pulse 100 98 100 Oximetry 06/23/18 06/23/18 06/23/18 15:47 16:21 20:00 Temperature [ 36.5 C Temporal] Pulse, 64 60 54 L Peripheral [ Right Pulse Oximetry] Respiratory 20 22 H 19 Rate Blood Pressure 120/56 L 124/65 120/61 [Right Upper Arm] O2 Sat by Pulse 99 98 100 Oximetry 06/23/18 06/24/18 06/24/18 21:53 00:00 02:00 Temperature [ 36.7 C Temporal] Pulse, 53 L 54 L 52 L Peripheral [ Right Pulse Oximetry] Respiratory 18 16 16 Rate Blood Pressure 104/49 L 113/54 L 114/49 L [Right Upper Arm] O2 Sat by Pulse 100 100 99 Oximetry 06/24/18 06/24/18 06/24/18 04:00 06:00 07:37 Temperature [ 36.5 C Temporal] Pulse, 52 L 51 L 46 L Peripheral [ Right Pulse Oximetry] Respiratory 16 16 16 Rate Blood Pressure 106/44 L 111/56 L 102/43 L [Right Upper Arm] O2 Sat by Pulse 97 100 99 Oximetry Weight - Most Recent: 79.379 kg I&O - Last 24 hours: Intake & Output 06/23/18 06/24/18 06/24/18 22:59 06:59 14:59 Output Total 200 Balance -200 Imaging Impressions - Last 24 hrs: disease management nurse shows moderate sinus arrhythmia with frequent episodes of continuous bradycardia in the low to mid 40s with occasional improvement to the 50s. Lowest heart rate of 37 Chest x-ray, portable, on 06/23/18 shows no evidence of cardiac megaly, CHF, pulmonary infiltrates, pneumothorax, etc. CT of the head without contrast on 06/23/18 was normal with exception of possible mild opacification in the left mastoid sinus Lab Results - Last 24 hrs: Laboratory Results - last 24 hr 06/23/18 06/23/18 06/23/18 Range/Units 15:11 15:15 15:15 WBC 10.9 H (4.0-10.2) K/uL RBC 4.75 (3.77-5.09) M/uL Hgb 14.1 (11.7-15.5) g/dL Hct 42.4 (34.0-46.0) % MCV 89.3 (84.0-98.0) fL MCH 29.7 (28.2-33.3) pg MCHC 33.3 (31.7-36.0) g/dL RDW 13.1 (11.2-14.1) % Plt Count 250 (150-350) K/uL Neut % (Auto) 67.3 (45.0-80.0) % Lymph % (Auto) 21.4 (10.0-50.0) % Williamson % (Auto) 9.3 (2.0-14.0) % Eos % (Auto) 1.7 (0.0-5.0) % Baso % (Auto) 0.3 (0.0-2.0) % Neut # (Auto) 7.32 H (1.40-7.00) K/uL Lymph # (Auto) 2.33 (0.50-3.50) K/uL Williamson # (Auto) 1.01 H (0.00-1.00) K/uL Eos # (Auto) 0.19 (0.00-0.50) K/uL Baso # (Auto) 0.03 (0.00-0.20) K/uL PT 10.8 (9.8-11.7) SEC INR 1.0 APTT 25.2 (22.1-29.8) SEC D-Dimer, Quantitative (0-400) ng/mL Sodium (136-145) mmol/L Potassium (3.5-5.1) mmol/L Chloride (98-107) mmol/L Carbon Dioxide (21.0-32.0) mmol/L BUN (7-18) mg/dL Creatinine (0.51-1.17) mg/dL Est Cr Clr Drug Dosing mL/min Estimated GFR (MDRD) mL/min Glucose (74-106) mg/dL Hemoglobin A1c (4.3-5.7) % Lactic Acid (0.4-2.0) mmol/L Uric Acid (2.6-7.2) mg/dL Calcium (8.5-10.1) mg/dL Magnesium (1.8-2.4) mg/dL Total Bilirubin (0.2-1.0) mg/dL AST (15-37) U/L ALT (12-78) U/L Alkaline Phosphatase (46-116) IU/L Creatine Kinase (26-308) U/L Creatine Kinase Index (0.0-2.5) % CK-MB (CK-2) (0.00-3.60) ng/mL Troponin I (0.000-0.056) ng/mL NT-Pro-B Natriuret Pep (0-125) pg/mL Total Protein (6.4-8.2) g/dL Albumin (3.4-5.0) g/dL Triglycerides (30-150) mg/dL Cholesterol (100-200) mg/dL LDL Cholesterol, Calc (0-100) mg/dL HDL Cholesterol (40-60) mg/dL Amylase (25-115) U/L Lipase (73-393) U/L TSH, Ultra Sensitive (0.358-3.740) mIU/mL HCG, Qual (NEGATIVE) Specimen Type Urine Color Urine Appearance Urine pH (5.0-9.0) Ur Specific [place] (1.005-1.030) Urine Protein (NEGATIVE) mg/dL Urine Glucose (UA) (NEGATIVE) mg/dL Urine Ketones (NEGATIVE) mg/dL Urine Occult Blood (NEGATIVE) Urine Nitrite (NEGATIVE) Urine Bilirubin (NEGATIVE) Urine Urobilinogen (0.2-1.0) E.U./dL Ur Leukocyte Esterase (NEGATIVE) Urine RBC /HPF Urine WBC /HPF Ur Epithelial Cells /LPF Amorphous Sediment (0/HPF) /HPF Urine Bacteria (NONE TO FEW) /HPF Urine Mucus (NEGATIVE) /LPF Urine Opiates Screen (NEGATIVE) Urine Methadone Screen (NEGATIVE) U Acetaminophen Screen (NEGATIVE) Ur Barbiturates Screen (NEGATIVE) Ur Tricyclics Screen (NEGATIVE) Ur Phencyclidine Scrn (NEGATIVE) Ur Amphetamine Screen (NEGATIVE) U Methamphetamines Scrn (NEGATIVE) U Benzodiazepines Scrn (NEGATIVE) U Cocaine Metab Screen (NEGATIVE) U Marijuana (THC) Screen (NEGATIVE) Ethyl Alcohol 0.000 (0.000-0.080) g/dL 06/23/18 06/23/18 06/23/18 Range/Units 15:15 15:15 15:15 WBC (4.0-10.2) K/uL RBC (3.77-5.09) M/uL Hgb (11.7-15.5) g/dL Hct (34.0-46.0) % MCV (84.0-98.0) fL MCH (28.2-33.3) pg MCHC (31.7-36.0) g/dL RDW (11.2-14.1) % Plt Count (150-350) K/uL Neut % (Auto) (45.0-80.0) % Lymph % (Auto) (10.0-50.0) % Williamson % (Auto) (2.0-14.0) % Eos % (Auto) (0.0-5.0) % Baso % (Auto) (0.0-2.0) % Neut # (Auto) (1.40-7.00) K/uL Lymph # (Auto) (0.50-3.50) K/uL Williamson # (Auto) (0.00-1.00) K/uL Eos # (Auto) (0.00-0.50) K/uL Baso # (Auto) (0.00-0.20) K/uL PT (9.8-11.7) SEC INR APTT (22.1-29.8) SEC D-Dimer, Quantitative < 100 (0-400) ng/mL Sodium 138 (136-145) mmol/L Potassium 4.0 (3.5-5.1) mmol/L Chloride 104 (98-107) mmol/L Carbon Dioxide 27.7 (21.0-32.0) mmol/L BUN 11 (7-18) mg/dL Creatinine 0.65 (0.51-1.17) mg/dL Est Cr Clr Drug Dosing 107.37 mL/min Estimated GFR (MDRD) > 60 mL/min Glucose 93 (74-106) mg/dL Hemoglobin A1c (4.3-5.7) % Lactic Acid 1.1 (0.4-2.0) mmol/L Uric Acid 3.0 (2.6-7.2) mg/dL Calcium 9.1 (8.5-10.1) mg/dL Magnesium 1.7 L (1.8-2.4) mg/dL Total Bilirubin 0.3 (0.2-1.0) mg/dL AST 15 (15-37) U/L ALT 18 (12-78) U/L Alkaline Phosphatase 68 (46-116) IU/L Creatine Kinase 72 (26-308) U/L Creatine Kinase Index 0.6 (0.0-2.5) % CK-MB (CK-2) 0.40 (0.00-3.60) ng/mL Troponin I 0.000 (0.000-0.056) ng/mL NT-Pro-B Natriuret Pep 26 (0-125) pg/mL Total Protein 7.6 (6.4-8.2) g/dL Albumin 3.6 (3.4-5.0) g/dL Triglycerides (30-150) mg/dL Cholesterol (100-200) mg/dL LDL Cholesterol, Calc (0-100) mg/dL HDL Cholesterol (40-60) mg/dL Amylase 34 (25-115) U/L Lipase 105 (73-393) U/L TSH, Ultra Sensitive 0.804 (0.358-3.740) mIU/mL HCG, Qual (NEGATIVE) Specimen Type Urine Color Urine Appearance Urine pH (5.0-9.0) Ur Specific [place] (1.005-1.030) Urine Protein (NEGATIVE) mg/dL Urine Glucose (UA) (NEGATIVE) mg/dL Urine Ketones (NEGATIVE) mg/dL Urine Occult Blood (NEGATIVE) Urine Nitrite (NEGATIVE) Urine Bilirubin (NEGATIVE) Urine Urobilinogen (0.2-1.0) E.U./dL Ur Leukocyte Esterase (NEGATIVE) Urine RBC /HPF Urine WBC /HPF Ur Epithelial Cells /LPF Amorphous Sediment (0/HPF) /HPF Urine Bacteria (NONE TO FEW) /HPF Urine Mucus (NEGATIVE) /LPF Urine Opiates Screen (NEGATIVE) Urine Methadone Screen (NEGATIVE) U Acetaminophen Screen (NEGATIVE) Ur Barbiturates Screen (NEGATIVE) Ur Tricyclics Screen (NEGATIVE) Ur Phencyclidine Scrn (NEGATIVE) Ur Amphetamine Screen (NEGATIVE) U Methamphetamines Scrn (NEGATIVE) U Benzodiazepines Scrn (NEGATIVE) U Cocaine Metab Screen (NEGATIVE) U Marijuana (THC) Screen (NEGATIVE) Ethyl Alcohol (0.000-0.080) g/dL 06/23/18 06/23/18 06/23/18 Range/Units 15:15 16:10 16:10 WBC (4.0-10.2) K/uL RBC (3.77-5.09) M/uL Hgb (11.7-15.5) g/dL Hct (34.0-46.0) % MCV (84.0-98.0) fL MCH (28.2-33.3) pg MCHC (31.7-36.0) g/dL RDW (11.2-14.1) % Plt Count (150-350) K/uL Neut % (Auto) (45.0-80.0) % Lymph % (Auto) (10.0-50.0) % Williamson % (Auto) (2.0-14.0) % Eos % (Auto) (0.0-5.0) % Baso % (Auto) (0.0-2.0) % Neut # (Auto) (1.40-7.00) K/uL Lymph # (Auto) (0.50-3.50) K/uL Williamson # (Auto) (0.00-1.00) K/uL Eos # (Auto) (0.00-0.50) K/uL Baso # (Auto) (0.00-0.20) K/uL PT (9.8-11.7) SEC INR APTT (22.1-29.8) SEC D-Dimer, Quantitative (0-400) ng/mL Sodium (136-145) mmol/L Potassium (3.5-5.1) mmol/L Chloride (98-107) mmol/L Carbon Dioxide (21.0-32.0) mmol/L BUN (7-18) mg/dL Creatinine (0.51-1.17) mg/dL Est Cr Clr Drug Dosing mL/min Estimated GFR (MDRD) mL/min Glucose (74-106) mg/dL Hemoglobin A1c (4.3-5.7) % Lactic Acid (0.4-2.0) mmol/L Uric Acid (2.6-7.2) mg/dL Calcium (8.5-10.1) mg/dL Magnesium (1.8-2.4) mg/dL Total Bilirubin (0.2-1.0) mg/dL AST (15-37) U/L ALT (12-78) U/L Alkaline Phosphatase (46-116) IU/L Creatine Kinase (26-308) U/L Creatine Kinase Index (0.0-2.5) % CK-MB (CK-2) (0.00-3.60) ng/mL Troponin I (0.000-0.056) ng/mL NT-Pro-B Natriuret Pep (0-125) pg/mL Total Protein (6.4-8.2) g/dL Albumin (3.4-5.0) g/dL Triglycerides (30-150) mg/dL Cholesterol (100-200) mg/dL LDL Cholesterol, Calc (0-100) mg/dL HDL Cholesterol (40-60) mg/dL Amylase (25-115) U/L Lipase (73-393) U/L TSH, Ultra Sensitive (0.358-3.740) mIU/mL HCG, Qual Negative (NEGATIVE) Specimen Type Urin[place]ath Urine Color Yellow Urine Appearance Clear Urine pH 7.5 (5.0-9.0) Ur Specific [place] 1.025 (1.005-1.030) Urine Protein 30 H (NEGATIVE) mg/dL Urine Glucose (UA) Negative (NEGATIVE) mg/dL Urine Ketones Negative (NEGATIVE) mg/dL Urine Occult Blood Trace-intact H (NEGATIVE) Urine Nitrite Negative (NEGATIVE) Urine Bilirubin Negative (NEGATIVE) Urine Urobilinogen 0.2 (0.2-1.0) E.U./dL Ur Leukocyte Esterase Negative (NEGATIVE) Urine RBC 0-5 /HPF Urine WBC 0-5 /HPF Ur Epithelial Cells Many H /LPF Amorphous Sediment Moderate H (0/HPF) /HPF Urine Bacteria Moderate H (NONE TO FEW) /HPF Urine Mucus Moderate H (NEGATIVE) /LPF Urine Opiates Screen Negative (NEGATIVE) Urine Methadone Screen Negative (NEGATIVE) U Acetaminophen Screen Negative (NEGATIVE) Ur Barbiturates Screen Negative (NEGATIVE) Ur Tricyclics Screen Negative (NEGATIVE) Ur Phencyclidine Scrn Negative (NEGATIVE) Ur Amphetamine Screen Negative (NEGATIVE) U Methamphetamines Scrn Negative (NEGATIVE) U Benzodiazepines Scrn Negative (NEGATIVE) U Cocaine Metab Screen Negative (NEGATIVE) U Marijuana (THC) Screen Positive H (NEGATIVE) Ethyl Alcohol (0.000-0.080) g/dL 06/23/18 06/24/18 06/24/18 Range/Units 20:40 06:40 06:40 WBC 7.3 (4.0-10.2) K/uL RBC 4.54 (3.77-5.09) M/uL Hgb 13.4 (11.7-15.5) g/dL Hct 41.1 (34.0-46.0) % MCV 90.5 (84.0-98.0) fL MCH 29.5 (28.2-33.3) pg MCHC 32.6 (31.7-36.0) g/dL RDW 13.2 (11.2-14.1) % Plt Count 272 (150-350) K/uL Neut % (Auto) 52.5 (45.0-80.0) % Lymph % (Auto) 32.4 (10.0-50.0) % Williamson % (Auto) 11.2 (2.0-14.0) % Eos % (Auto) 3.6 (0.0-5.0) % Baso % (Auto) 0.3 (0.0-2.0) % Neut # (Auto) 3.85 (1.40-7.00) K/uL Lymph # (Auto) 2.37 (0.50-3.50) K/uL Williamson # (Auto) 0.82 (0.00-1.00) K/uL Eos # (Auto) 0.26 (0.00-0.50) K/uL Baso # (Auto) 0.02 (0.00-0.20) K/uL PT (9.8-11.7) SEC INR APTT (22.1-29.8) SEC D-Dimer, Quantitative (0-400) ng/mL Sodium 139 (136-145) mmol/L Potassium 4.2 (3.5-5.1) mmol/L Chloride 106 (98-107) mmol/L Carbon Dioxide 28.1 (21.0-32.0) mmol/L BUN 11 (7-18) mg/dL Creatinine 0.65 (0.51-1.17) mg/dL Est Cr Clr Drug Dosing 107.37 mL/min Estimated GFR (MDRD) > 60 mL/min Glucose 86 (74-106) mg/dL Hemoglobin A1c (4.3-5.7) % Lactic Acid (0.4-2.0) mmol/L Uric Acid (2.6-7.2) mg/dL Calcium 8.9 (8.5-10.1) mg/dL Magnesium (1.8-2.4) mg/dL Total Bilirubin 0.4 (0.2-1.0) mg/dL AST 14 L (15-37) U/L ALT 17 (12-78) U/L Alkaline Phosphatase 61 (46-116) IU/L Creatine Kinase 70 58 (26-308) U/L Creatine Kinase Index 0.6 0.7 (0.0-2.5) % CK-MB (CK-2) 0.40 0.40 (0.00-3.60) ng/mL Troponin I 0.002 0.000 (0.000-0.056) ng/mL NT-Pro-B Natriuret Pep (0-125) pg/mL Total Protein 7.0 (6.4-8.2) g/dL Albumin 3.2 L (3.4-5.0) g/dL Triglycerides 65 (30-150) mg/dL Cholesterol 164 (100-200) mg/dL LDL Cholesterol, Calc 106 H (0-100) mg/dL HDL Cholesterol 45 (40-60) mg/dL Amylase (25-115) U/L Lipase (73-393) U/L TSH, Ultra Sensitive (0.358-3.740) mIU/mL HCG, Qual (NEGATIVE) Specimen Type Urine Color Urine Appearance Urine pH (5.0-9.0) Ur Specific [place] (1.005-1.030) Urine Protein (NEGATIVE) mg/dL Urine Glucose (UA) (NEGATIVE) mg/dL Urine Ketones (NEGATIVE) mg/dL Urine Occult Blood (NEGATIVE) Urine Nitrite (NEGATIVE) Urine Bilirubin (NEGATIVE) Urine Urobilinogen (0.2-1.0) E.U./dL Ur Leukocyte Esterase (NEGATIVE) Urine RBC /HPF Urine WBC /HPF Ur Epithelial Cells /LPF Amorphous Sediment (0/HPF) /HPF Urine Bacteria (NONE TO FEW) /HPF Urine Mucus (NEGATIVE) /LPF Urine Opiates Screen (NEGATIVE) Urine Methadone Screen (NEGATIVE) U Acetaminophen Screen (NEGATIVE) Ur Barbiturates Screen (NEGATIVE) Ur Tricyclics Screen (NEGATIVE) Ur Phencyclidine Scrn (NEGATIVE) Ur Amphetamine Screen (NEGATIVE) U Methamphetamines Scrn (NEGATIVE) U Benzodiazepines Scrn (NEGATIVE) U Cocaine Metab Screen (NEGATIVE) U Marijuana (THC) Screen (NEGATIVE) Ethyl Alcohol (0.000-0.080) g/dL 06/24/18 Range/Units 06:40 WBC (4.0-10.2) K/uL RBC (3.77-5.09) M/uL Hgb (11.7-15.5) g/dL Hct (34.0-46.0) % MCV (84.0-98.0) fL MCH (28.2-33.3) pg MCHC (31.7-36.0) g/dL RDW (11.2-14.1) % Plt Count (150-350) K/uL Neut % (Auto) (45.0-80.0) % Lymph % (Auto) (10.0-50.0) % Williamson % (Auto) (2.0-14.0) % Eos % (Auto) (0.0-5.0) % Baso % (Auto) (0.0-2.0) % Neut # (Auto) (1.40-7.00) K/uL Lymph # (Auto) (0.50-3.50) K/uL Williamson # (Auto) (0.00-1.00) K/uL Eos # (Auto) (0.00-0.50) K/uL Baso # (Auto) (0.00-0.20) K/uL PT (9.8-11.7) SEC INR APTT (22.1-29.8) SEC D-Dimer, Quantitative (0-400) ng/mL Sodium (136-145) mmol/L Potassium (3.5-5.1) mmol/L Chloride (98-107) mmol/L Carbon Dioxide (21.0-32.0) mmol/L BUN (7-18) mg/dL Creatinine (0.51-1.17) mg/dL Est Cr Clr Drug Dosing mL/min Estimated GFR (MDRD) mL/min Glucose (74-106) mg/dL Hemoglobin A1c 5.1 (4.3-5.7) % Lactic Acid (0.4-2.0) mmol/L Uric Acid (2.6-7.2) mg/dL Calcium (8.5-10.1) mg/dL Magnesium (1.8-2.4) mg/dL Total Bilirubin (0.2-1.0) mg/dL AST (15-37) U/L ALT (12-78) U/L Alkaline Phosphatase (46-116) IU/L Creatine Kinase (26-308) U/L Creatine Kinase Index (0.0-2.5) % CK-MB (CK-2) (0.00-3.60) ng/mL Troponin I (0.000-0.056) ng/mL NT-Pro-B Natriuret Pep (0-125) pg/mL Total Protein (6.4-8.2) g/dL Albumin (3.4-5.0) g/dL Triglycerides (30-150) mg/dL Cholesterol (100-200) mg/dL LDL Cholesterol, Calc (0-100) mg/dL HDL Cholesterol (40-60) mg/dL Amylase (25-115) U/L Lipase (73-393) U/L TSH, Ultra Sensitive (0.358-3.740) mIU/mL HCG, Qual (NEGATIVE) Specimen Type Urine Color Urine Appearance Urine pH (5.0-9.0) Ur Specific [place] (1.005-1.030) Urine Protein (NEGATIVE) mg/dL Urine Glucose (UA) (NEGATIVE) mg/dL Urine Ketones (NEGATIVE) mg/dL Urine Occult Blood (NEGATIVE) Urine Nitrite (NEGATIVE) Urine Bilirubin (NEGATIVE) Urine Urobilinogen (0.2-1.0) E.U./dL Ur Leukocyte Esterase (NEGATIVE) Urine RBC /HPF Urine WBC /HPF Ur Epithelial Cells /LPF Amorphous Sediment (0/HPF) /HPF Urine Bacteria (NONE TO FEW) /HPF Urine Mucus (NEGATIVE) /LPF Urine Opiates Screen (NEGATIVE) Urine Methadone Screen (NEGATIVE) U Acetaminophen Screen (NEGATIVE) Ur Barbiturates Screen (NEGATIVE) Ur Tricyclics Screen (NEGATIVE) Ur Phencyclidine Scrn (NEGATIVE) Ur Amphetamine Screen (NEGATIVE) U Methamphetamines Scrn (NEGATIVE) U Benzodiazepines Scrn (NEGATIVE) U Cocaine Metab Screen (NEGATIVE) U Marijuana (THC) Screen (NEGATIVE) Ethyl Alcohol (0.000-0.080) g/dL ESTEFANI Results - Last 24 hrs: Microbiology 06/23/18 16:10 Urine Culture - Final Urine, Clean Catch MIXED JENI SUGGESTIVE OF CONTAMINATION. Med Orders - Current: Current Medications Acetaminophen (Tylenol) 650 mg PO Q4H PRN PRN Reason: Pain Last Admin: 06/23/18 21:51 Dose: 650 mg Ketorolac Tromethamine (Toradol) 15 mg IVPUSH Q6H PRN PRN Reason: Pain (severe 7-10) Stop: 06/28/18 17:22 Magnesium Oxide (Magnesium Oxide) 400 mg PO BID AIRAM Last Admin: 06/24/18 07:48 Dose: 400 mg Sodium Chloride (Saline Flush) 10 ml FLUSH ASDIRECTED PRN PRN Reason: Keep Vein Open Last Admin: 06/23/18 18:02 Dose: 10 ml Sodium Chloride (Saline Flush) 10 ml FLUSH Q12HR PRN PRN Reason: Keep Vein Open Temazepam (Restoril) 15 mg PO BEDTIME PRN PRN Reason: Insomnia Tramadol HCl (Ultram) 50 mg PO Q6H PRN PRN Reason: Pain (moderate 4-6) Discontinued Medications Famotidine (Pepcid) 40 mg IVPUSH ONETIME ONE Stop: 06/23/18 15:10 Last Admin: 06/23/18 15:22 Dose: 40 mg Ketorolac Tromethamine (Toradol) 30 mg IVPUSH ONETIME ONE Stop: 06/23/18 17:21 Last Admin: 06/23/18 18:01 Dose: 30 mg Ondansetron HCl (Zofran) 4 mg IVPUSH ONETIME ONE Stop: 06/23/18 15:13 Last Admin: 06/23/18 15:22 Dose: 4 mg - Exam Quality Assessment: Reports: Supplemental Oxygen, DVT Prophylaxis. Denies: Central Line/PICC, Urine Catheter, Skin Breakdown, Restraints General: Reports: Alert, Oriented, Cooperative, No Acute Distress HEENT: Reports: Pupils Equal, Pupils Reactive, EOMI, Mucous Membr. Moist/[place] Neck: Reports: Supple, Trachea Midline, No JVD, No Thyromegaly, +2 Carotid Pulse wo Bruit. Denies: Lymphadenopathy Lungs: Reports: Clear to Auscultation, Normal Respiratory Effort, Rhonchi. Denies: Rub Cardiovascular: Reports: No Murmurs, Bradycardia (Moderate bradycardia with mild sinus arrhythmia). Denies: Gallops, Rubs GI/Abdominal Exam: Normal Bowel Sounds, Soft, Non-Tender, No Organomegaly, No Distention, No Abnormal Bruit, No Mass, Other (Obese). No: Guarding (Female) Exam: Deferred Rectal (Female) Exam: Deferred Back Exam: Reports: Normal Inspection, Full Range of Motion. Denies: CVA Tenderness (L), CVA Tenderness (R), Muscle Spasm Extremities: Normal Inspection, Normal Range of Motion, Non-Tender, No Pedal Edema, Normal Capillary Refill. No: Quinton's Sign Skin: Reports: Warm, Dry, Intact. Denies: Ecchymosis Neurological: Reports: No New Focal Deficit, Other (No clinical orthostasis) Psy/Mental Status: Reports: Anxious (Mild), Depressed (Mild with adequate eye contact). Denies: Agitated, Withdrawal Symptoms EKG INTERPRETATION EKG Date: 06/24/18 Time: 08:12 Rhythm: Other (Moderate sinus bradycardia with sinus arrhythmia) Rate (Beats/Min): 48 [place]: Normal (Neutral cardiac axis) P-Wave: Present QRS: Normal (QRS interval of 0.10 seconds representing repolarization changes with T-wave inversion in leads V1) ST-T: Normal QT: Normal FL/PQ Interval: FL interval of 0.24 seconds representing a somewhat progressive first-degree AV block with mild poor R-wave progression in the anterior leads Comparison: Change From Previous EKG (New sinus bradycardia and progressive first-degree AV block since last EKG on 06/23/18) EKG Interpretation Comments: 1. No acute ischemic changes 2. Progressive first-degree AV block 3. Moderate sinus bradycardia and sinus arrhythmia
[2018-06-24] MEDS: Acetaminophen 325 MG Tab PO PRN (09:36)
== END 2018-06-24 10:10 ==
LOC: LL.ED 15:08 → LL.MS 16:43 → UNDOADMIN 16:43 → INTOOBSV 16:56 → LL.MS 16:56 → UNDOADMIN 16:56
PROVIDERS: ADMIT Family Medicine; ATTEND Family Medicine
DX: R00.1 Bradycardia, unspecified (principal); G40.909 Epilepsy, unspecified, not intractable, without status epilepticus; R55 Syncope and collapse; I44.0 Atrioventricular block, first degree; G43.009 Migraine without aura, not intractable, without status migrainosus; E83.42 Hypomagnesemia; F19.90 Other psychoactive substance use, unspecified, uncomplicated; F41.8 Other specified anxiety disorders; E88.09 Other disorders of plasma-protein metabolism, not elsewhere classified; Z79.899 Other long term (current) drug therapy
CPT/HCPCS: 36415; 70450; 71045; 80053; 80061; 80305-QW; 81001; 82150; 82550; 82553; 83036; 83605; 83690; 83735; 83880; 84146; 84443; 84484; 84550; 84703; 85025; 85379; 85610; 85730; 87086; 93005; 96374; 96375; 99285; A9270-GY; G0480; J1885; J2405; J3490; J7050

== ENCOUNTER 2018-06-28 00:26 | Emergency (ER) | payer BC ==
[2018-06-28] MEDS ORDERED: Ketorolac 60 MG/2 ML SDV IM ONE (00:43)
[2018-06-28] MEDS ORDERED: cefTRIAXone 1 GM Vial IM ONE (00:43)
[2018-06-28] MEDS ORDERED: Cephalexin 250 MG Cap PO ONE (00:44)
[2018-06-28] MEDS ORDERED: Acetaminophen/oxyCODONE 325-5 MG Tab PO ONE (00:44)
--- NOTE | 2018-06-28 00:50 | EDM.PDOC ---
ED HPI GENERAL MEDICAL PROBLEM - General Chief Complaint: General Stated Complaint: R FOOT PAIN Time Seen by Provider: 06/28/18 00:33 Source of Information: Reports: Patient History Limitations: Reports: No Limitations - History of Present Illness INITIAL COMMENTS - FREE TEXT/NARRATIVE: Patient reports gradually increasing pain and redness involving sole of right foot. No drainage. Has chronic tinea pedis that involves the entire foot. Has been seen by foot specialists/dermatologists for this and they are unable to get rid of the problem. No fevers/chills. No injuries to foot. Symptoms began 2 days ago. Right Face Pain Score (Numeric/FACES): 10 - Related Data Allergies Allergy/AdvReac Type Severity Reaction Status Date / Time bee venom protein (honey bee) Allergy Anaphylactic Verified 06/28/18 01:20 Shock Home Meds: Home Meds Non-Formulary Medication [NF Drug] 1 applicful VAG ASDIRECTED 06/23/18 [History] Triamcinolone Acetonide [Triamcinolone Acetonide 0.1% Crm] 1 applic .XX BID PRN 06/23/18 [History] Escitalopram [Lexapro] 10 mg PO BEDTIME 06/24/18 [History] Past Medical History HEENT History: Reports: Allergic Rhinitis, Impaired Vision, Otitis Media, Other (See Below) Other HEENT History: Patient wears glasses with right-sided strabismus divergence corrected with glasses. Allergic rhinitis to "everything." Recurrent otitis media with surgeries as below. Cardiovascular History: Reports: Arrhythmia, Heart Murmur, Syncope, Other (See Below) Other Cardiovascular History: Recurrent syncope possibly secondary to undiagnosed seizure activity versus migraine equivalent. The patient does have a history of recurrent nonspecific probable functional murmur and possible sinus arrhythmia? She does not know her cholesterol status. Respiratory History: Reports: Bronchitis, Recurrent, Intubation, Previous, Other (See Below) Other Respiratory History: Reactive airway disease secondary to infection with apparent negative workup for asthma. 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 Psychiatric History: Reports: Anxiety, Depression, PTSD Endocrine/Metabolic History: Reports: Obesity/BMI 30+, Other (See Below) Other Endocrine/Metabolic History: Unknown type of sugar disorder-hypoglycemia versus glucose intolerance? 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 - Infectious Disease History Infectious Disease History: Reports: Chicken Pox, Shingles - Past Surgical History Head Surgeries/Procedures: Reports: None HEENT Surgical History: Reports: Myringotomy w Tube(s), Other (See Below) Other HEENT Surgeries/Procedures: PE tubes as an infant then at age 8 and then at age 18. Cardiovascular Surgical History: Reports: None Respiratory Surgical History: Reports: None GI Surgical History: Reports: None Female Surgical History: Reports: None Endocrine Surgical History: Reports: None Musculoskeletal Surgical History: Reports: None Oncologic Surgical History: Reports: None Dermatological Surgical History: Reports: None - Past Imaging History Past Imaging History: Reports: CAT Scan (Apparent multiple previous negative CT scans of the head), PFT (At age 8), Ultrasound (Pelvic ultrasound on 02/06/16) Social & Family History - Family History Family Medical History: Unobtainable HEENT: Reports: None Cardiac: Reports: Syncope, Other (See Below) Other Cardiac Family History: Sister, maternal grandmother, and maternal aunt with history of recurrent syncopal episodes/fainting episodes possibly from seizures. Respiratory: Reports: Asthma, COPD, Sleep Apnea, Other (See Below) Other Respiratory Family Hisory: Asthma in maternal uncle. Maternal aunt with COPD and sleep apnea. GI: Reports: Irritable Bowel Syndrome, Other (See Below) Other GI Family History: Irritable bowel bowel syndrome in maternal aunt. : Reports: Dialysis, Renal Disease/Insufficiency Other Family History: Paternal grandfather with renal failure and dialysis. OBGYN: Reports: Endometriosis, Other (See Below) Other OBGYN Family History: Maternal aunt with endometriosis. Musculoskeletal: Reports: None Neurological: Reports: CVA, Migraines, Seizure, Other (See Below) Other Neurological Family History: Maternal uncle with migraine headaches. Maternal uncle with CVA. Recurrent seizure disorder in mother, maternal grandmother, and maternal aunt. Psychiatric: Reports: Anxiety, Bipolar, Depression, Psych Hospitalization(s), Suicide Attempt, Other (See Below) Other Psychiatric Family History: Parents with anxiety depression disorder with mother having bipolar disorder and both parents having suicidal ideation and psychiatric hospitalization. Endocrine/Metabolic: Reports: Diabetes, type II, IDDM, Other (See Below) Other Endocrine/Metabolic Family History: Paternal also with IDDM. Hematologic: Reports: None Immunologic: Reports: None Dermatologic: Reports: Other (See Below) Other Dermatologic Family History: Maternal aunt and cousin with is lichen planus. Oncologic: Reports: Breast, Lung, Other (See Below) Other Oncologic Family History: Maternal Aunt with breast cancer. Maternal grandmother with lung cancer with history of tobacco use. - Caffeine Use Caffeine Use: Reports: Soda (5 sodas per week), Tea (1 glass per week). Denies : Coffee, Energy Drinks - Living Situation & Occupation Living situation: Reports: Single (No children), Alone Occupation: Employed ED ROS GENERAL - Review of Systems Review Of Systems: ROS reveals no pertinent complaints other than HPI. ED EXAM, GENERAL - Physical Exam Exam: See Below Exam Limited By: No Limitations General Appearance: Alert, Obese, Other (tearful at times) Eye Exam: Bilateral Eye: EOMI, PERRL Throat/Mouth: Normal Voice, No Airway Compromise Head: Atraumatic, Normocephalic Neck: Supple Respiratory/Chest: No Respiratory Distress Extremities: Normal Capillary Refill, Other (Skin of right foot shows changes consistent with T.Pedis of entire sole. Thickened peeling skin noted. Has area of redness near inner arch of foot that is tender. No drainage noted. No vesicles/pustules. ) Neurological: Alert, Oriented, Other (unable to bear weight on right foot) Psychiatric: Tearful Skin Exam: Warm, Dry Course - Vital Signs Last Recorded V/S: Last Vital Signs Temp 36.9 C 06/28/18 00:27 Pulse 92 06/28/18 00:27 Resp 16 06/28/18 00:27 BP 125/53 L 06/28/18 00:27 Pulse Ox 98 06/28/18 00:27 - Orders/Labs/Meds Meds: Medications Discontinued Medications Generic Name Dose Route Start Last Admin Trade Name Freq PRN Reason Stop Dose Admin Ceftriaxone Sodium 1 gm 08/27/18 00:43 06/28/18 01:23 Rocephin IM 06/28/18 00:44 1 gm ONETIME ONE Administration Cephalexin 500 mg 06/28/18 00:44 06/28/18 01:22 Keflex PO 06/28/18 00:45 500 mg ONETIME ONE Administration Ketorolac Tromethamine 60 mg 06/28/18 00:43 06/28/18 01:23 Toradol IM 06/28/18 00:44 60 mg ONETIME ONE Administration Oxycodone/Acetaminophen 1 tab 06/28/18 00:44 06/28/18 01:22 Percocet 325-5 Mg PO 06/28/18 00:45 1 tab ONETIME ONE Administration Departure - Departure Time of Disposition: 01:35 Disposition: Home, Self-Care 01 Condition: Good Clinical Impression: Cellulitis Qualifiers: Site of cellulitis: extremity Site of cellulitis of extremity: lower extremity Laterality: right Qualified Code(s): L03.115 - Cellulitis of right lower limb - Discharge Information *PRESCRIPTION DRUG MONITORING PROGRAM REVIEWED*: No *COPY OF PRESCRIPTION DRUG MONITORING REPORT IN PATIENT LUCÍA: No Instructions: Cellulitis, Adult, [id number] Referrals: PCP,Unobtain [Primary Care Provider] - Forms: ED Department Discharge Additional Instructions: Take antibiotics as directed. Make follow up appointment with your regular provider for recheck in two days (Thursday). You were given a bottle of medication at the ER to use as needed for pain. Take one tablet every 6 hours as needed. If you need additional pain medication, talk to your provider about this on Thursday. Follow up as needed if problems worsen and do not appear to be improving with the antibiotic. If you note any drainage it may be useful to culture it to identify what is causing the infection. Use crutches for now so that you can avoid weight bearing on the infected foot.
== END 2018-06-28 02:00 | disposition home or self-care (01) ==
LOC: LL.ED 00:26
DX: L03.115 Cellulitis of right lower limb (principal); Z91.030 Bee allergy status
CPT/HCPCS: 96372; 99283; A9270-GY; J0696; J1885

== ENCOUNTER 2018-06-30 13:20 | Emergency (ER) | payer BC ==
[2018-06-30 14:09] LABS: CHLORIDE,CL 105 mmol/L (98-107); SODIUM,NA 142 mmol/L (136-145)
--- NOTE | 2018-06-30 14:10 | EDM.PDOC ---
ED HPI GENERAL MEDICAL PROBLEM - General Chief Complaint: Lower Extremity Injury/Pain Stated Complaint: Right foot pain Time Seen by Provider: 06/30/18 13:22 Source of Information: Reports: Patient History Limitations: Reports: No Limitations - History of Present Illness INITIAL COMMENTS - FREE TEXT/NARRATIVE: Patient returns to ER with worsening pain/infection in the sole area of right foot. Was seen here Thursday night for this as was unable to pickle pumper the Keflex [place] prescribed when she was discharged from their facility over the weekend. She had been there for evaluation of seizures but developed early signs of infection while at that facility. No antibiotics were given prior to discharge. Received dose from ER on Thursday night. Picked up Keflex and took that as prescribed Thursday and part of Thursday (yesterday). Was seen by Podiatry at local [facility] and switched to Doxy yesterday to provide better coverage if MRSA. Not able to obtain culture to that point as there was no blistering or drainage. Today patient says foot is much worse, more painful, and now has an area looking like an abscess. No fevers or chills reported. Still using crutches for ambulation. Feet Pain Score (Numeric/FACES): 6 - Related Data Allergies Allergy/AdvReac Type Severity Reaction Status Date / Time bee venom protein (honey bee) Allergy Anaphylactic Verified 06/28/18 01:20 Shock Home Meds: Home Meds Escitalopram [Lexapro] 10 mg PO BEDTIME 06/24/18 [History] Doxycycline [Doxycycline Monohydrate] 100 mg PO BID 06/30/18 [History] Past Medical History HEENT History: Reports: Allergic Rhinitis, Impaired Vision, Otitis Media, Other (See Below) Other HEENT History: Patient wears glasses with right-sided strabismus divergence corrected with glasses. Allergic rhinitis to "everything." Recurrent otitis media with surgeries as below. Cardiovascular History: Reports: Arrhythmia, Heart Murmur, Syncope, Other (See Below) Other Cardiovascular History: Recurrent syncope possibly secondary to undiagnosed seizure activity versus migraine equivalent. The patient does have a history of recurrent nonspecific probable functional murmur and possible sinus arrhythmia? She does not know her cholesterol status. Respiratory History: Reports: Bronchitis, Recurrent, Intubation, Previous, Other (See Below) Other Respiratory History: Reactive airway disease secondary to infection with apparent negative workup for asthma. 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 Psychiatric History: Reports: Anxiety, Depression, PTSD Endocrine/Metabolic History: Reports: Obesity/BMI 30+, Other (See Below) Other Endocrine/Metabolic History: Unknown type of sugar disorder-hypoglycemia versus glucose intolerance? 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 - Infectious Disease History Infectious Disease History: Reports: Chicken Pox, Shingles - Past Surgical History Head Surgeries/Procedures: Reports: None HEENT Surgical History: Reports: Myringotomy w Tube(s), Other (See Below) Other HEENT Surgeries/Procedures: PE tubes as an infant then at age 8 and then at age 18. Cardiovascular Surgical History: Reports: None Respiratory Surgical History: Reports: None GI Surgical History: Reports: None Female Surgical History: Reports: None Endocrine Surgical History: Reports: None Musculoskeletal Surgical History: Reports: None Oncologic Surgical History: Reports: None Dermatological Surgical History: Reports: None - Past Imaging History Past Imaging History: Reports: CAT Scan (Apparent multiple previous negative CT scans of the head), PFT (At age 8), Ultrasound (Pelvic ultrasound on 02/06/16) Social & Family History - Family History Family Medical History: Unobtainable HEENT: Reports: None Cardiac: Reports: Syncope, Other (See Below) Other Cardiac Family History: Sister, maternal grandmother, and maternal aunt with history of recurrent syncopal episodes/fainting episodes possibly from seizures. Respiratory: Reports: Asthma, COPD, Sleep Apnea, Other (See Below) Other Respiratory Family Hisory: Asthma in maternal uncle. Maternal aunt with COPD and sleep apnea. GI: Reports: Irritable Bowel Syndrome, Other (See Below) Other GI Family History: Irritable bowel bowel syndrome in maternal aunt. : Reports: Dialysis, Renal Disease/Insufficiency Other Family History: Paternal grandfather with renal failure and dialysis. OBGYN: Reports: Endometriosis, Other (See Below) Other OBGYN Family History: Maternal aunt with endometriosis. Musculoskeletal: Reports: None Neurological: Reports: CVA, Migraines, Seizure, Other (See Below) Other Neurological Family History: Maternal uncle with migraine headaches. Maternal uncle with CVA. Recurrent seizure disorder in mother, maternal grandmother, and maternal aunt. Psychiatric: Reports: Anxiety, Bipolar, Depression, Psych Hospitalization(s), Suicide Attempt, Other (See Below) Other Psychiatric Family History: Parents with anxiety depression disorder with mother having bipolar disorder and both parents having suicidal ideation and psychiatric hospitalization. Endocrine/Metabolic: Reports: Diabetes, type II, IDDM, Other (See Below) Other Endocrine/Metabolic Family History: Paternal also with IDDM. Hematologic: Reports: None Immunologic: Reports: None Dermatologic: Reports: Other (See Below) Other Dermatologic Family History: Maternal aunt and cousin with is lichen planus. Oncologic: Reports: Breast, Lung, Other (See Below) Other Oncologic Family History: Maternal Aunt with breast cancer. Maternal grandmother with lung cancer with history of tobacco use. - Tobacco Use Smoking Status *Q: Never Smoker Second Hand Smoke Exposure: No - Caffeine Use Caffeine Use: Reports: None - Recreational Drug Use Recreational Drug Use: No - Living Situation & Occupation Living situation: Reports: Single (No children), Alone Occupation: Employed Review of Systems - Review of Systems Review Of Systems: ROS reveals no pertinent complaints other than HPI. ED EXAM, GENERAL - Physical Exam Exam: See Below Exam Limited By: No Limitations General Appearance: Alert, No Apparent Distress, Obese Eye Exam: Bilateral Eye: EOMI, PERRL Head: Atraumatic, Normocephalic Neck: Supple Respiratory/Chest: No Respiratory Distress Extremities: Other (large area of yellowing located sole of right foot with surrounding erythema. No swelling/pointing. No streaking of redness noted. Able to move ankle on involved foot. Good capillary refill. Scaling of skin toes /heel/foot consistent with tinea pedis. ) Neurological: Alert, Oriented, Normal Cognition Psychiatric: Normal Affect, Normal Mood Skin Exam: Warm, Dry Course - Vital Signs Last Recorded V/S: Last Vital Signs Temp 36.4 C 06/30/18 13:28 Pulse 81 06/30/18 13:28 Resp 18 06/30/18 13:28 BP 121/60 06/30/18 13:28 Pulse Ox 97 06/30/18 13:28 - Orders/Labs/Meds Labs: Laboratory Tests 06/30/18 06/30/18 Range/Units 13:51 13:51 WBC 9.6 (4.0-10.2) K/uL RBC 4.39 (3.77-5.09) M/uL Hgb 13.0 (11.7-15.5) g/dL Hct 39.7 (34.0-46.0) % MCV 90.4 (84.0-98.0) fL MCH 29.6 (28.2-33.3) pg MCHC 32.7 (31.7-36.0) g/dL RDW 13.0 (11.2-14.1) % Plt Count 292 (150-350) K/uL Neut % (Auto) 70.9 (45.0-80.0) % Lymph % (Auto) 18.9 (10.0-50.0) % [place] % (Auto) 8.6 (2.0-14.0) % Eos % (Auto) 1.3 (0.0-5.0) % Baso % (Auto) 0.3 (0.0-2.0) % Neut # (Auto) 6.81 (1.40-7.00) K/uL Lymph # (Auto) 1.81 (0.50-3.50) K/uL [place] # (Auto) 0.83 (0.00-1.00) K/uL Eos # (Auto) 0.12 (0.00-0.50) K/uL Baso # (Auto) 0.03 (0.00-0.20) K/uL Sodium 142 (136-145) mmol/L Potassium 3.7 (3.5-5.1) mmol/L Chloride 105 (98-107) mmol/L Carbon Dioxide 29.1 (21.0-32.0) mmol/L BUN 9 (7-18) mg/dL Creatinine 0.59 (0.51-1.17) mg/dL Est Cr Clr Drug Dosing 118.29 mL/min Estimated GFR (MDRD) > 60 mL/min Glucose 89 (74-106) mg/dL Calcium 9.1 (8.5-10.1) mg/dL Total Bilirubin 0.3 (0.2-1.0) mg/dL AST 14 L (15-37) U/L ALT 18 (12-78) U/L Alkaline Phosphatase 71 (46-116) IU/L Total Protein 7.5 (6.4-8.2) g/dL Albumin 3.3 L (3.4-5.0) g/dL - Re-Assessments/Exams Free Text/Narrative Re-Assessment/Exam: 06/30/18 14:29 Suspect developing abscess right foot. Determined that best course of action was referral back to [place] for evaluation for surgical debridement and culture. ID available as well as surgical staff. Call place to [place] and arrangements for transfer were made with as accepting MD. Patient is to present to the ER for initial evaluation and treatment. Departure - Departure Time of Disposition: 14:10 Disposition: DC/Tfer to Acute Hospital 02 Condition: Good Clinical Impression: Right foot infection - Discharge Information *PRESCRIPTION DRUG MONITORING PROGRAM REVIEWED*: Not Applicable *COPY OF PRESCRIPTION DRUG MONITORING REPORT IN PATIENT LUCÍA: Not Applicable Forms: ED Department Discharge Additional Instructions: Go directly to [place] ER. They are expecting you and will evaluate the infection and formulate a treatment plan.
== END 2018-06-30 14:20 ==
LOC: LL.ED 13:20
DX: L08.9 Local infection of the skin and subcutaneous tissue, unspecified (principal); E66.9 Obesity, unspecified; Z91.030 Bee allergy status
CPT/HCPCS: 36415; 80053; 85025; 99285

== ENCOUNTER 2019-01-24 16:37 | Emergency (ER) | payer SELFPAY ==
--- NOTE | 2019-01-24 16:57 | EDM.PDOC ---
ED HPI GENERAL MEDICAL PROBLEM - General Chief Complaint: General Stated Complaint: gum line swelling Time Seen by Provider: 01/24/19 16:55 Source of Information: Reports: Patient, Old Records ([facility] EMR. No paper hospital chart available.), Other ([place] EMR. Note previous review of the [facility] EMR on 06/23/18) History Limitations: Reports: No Limitations - History of Present Illness INITIAL COMMENTS - FREE TEXT/NARRATIVE: The patient was brought to emergency room via private automobile by her significant other for evaluation of 6/10 right lower posterior dental pain with mild gingival swelling with symptoms starting at about 10 AM yesterday morning. She did take ibuprofen 400 mg earlier this morning with only minimal improvement of her symptoms with no recent known exposure to infection, dental injury, drainage, etc. She did have a fever of 99 yesterday p.m. with one episode of emesis 2 days ago. No recent history of abdominal pain, heartburn, nausea, diarrhea, melena, gross hematochezia, or any food intolerance, including fatty foods, etc.. She denies any gross hematuria, colic, or other UTI symptoms. The patient denies any chest pain/pressure, heart flutter, dizziness, orthostasis, orthopnea, diaphoresis, paresthesias, recent decreased exercise tolerance, or any other anginal-type symptoms. The patient also denies any recent cough, wheezing, dyspnea, etc.. Onset: Gradual Onset Date: 01/23/19 Onset Time: 10:00 Duration: Constant, Getting Worse Location: Reports: Other (Dental pain as above). Denies: Head, Face, Neck, Chest, Abdomen, Back, Pelvis, Upper Extremity, Left, Upper Extremity, Right, Radiates to Quality: Reports: Sharp, Throbbing Severity: Moderate Improves with: Reports: None Worsens with: Reports: None Context: Reports: Other (As above). Denies: Sick Contact, Trauma Associated Symptoms: Reports: Confusion, Fever/Chills, Nausea/Vomiting (As above ). 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 Denies: Cataract, Glaucoma, Hard of Hearing, Macular Degeneration , Retinal Detachment Other HEENT History: Patient wears glasses with right-sided strabismus divergence corrected with glasses. Allergic rhinitis to "everything." Recurrent otitis media with surgeries as below. Cardiovascular History: Reports: Arrhythmia, Heart Murmur, Syncope, Other (See Below). Denies: Afib, Aneurysm, Blood Clots/VTE/DVT, CAD, Heart Failure, High Cholesterol, Hypertension, DC, PVD Other Cardiovascular History: Recurrent syncope possibly secondary to undiagnosed seizure activity versus migraine equivalent with last episode in possible seizure on 06/23/18 with hospitalization in this facility. Note newly diagnosed first-degree AV block and moderate bradycardia at that time with negative cardiac workup as below. The patient does have a history of recurrent nonspecific probable functional murmur and possible sinus arrhythmia? She does not know her cholesterol status. Respiratory History: Reports: Bronchitis, Recurrent, Intubation, Previous, Other (See Below). Denies: Asthma, COPD, Intubation, Difficult, PE, Pneumothorax, Sleep Apnea, SOB, TB Other Respiratory History: Reactive airway disease secondary to infection with apparent negative workup for asthma. Gastrointestinal History: Reports: Other (See Below). Denies: Bowel Obstruction , Celiac Disease, Cholelithiasis, Chronic Constipation, Chronic Diarrhea, Colon Polyp, Fecal Incontinence, Gastritis, GERD, GI Bleed, Hepatitis, Hiatal Hernia, Irritable Bowel Syndrome, Jaundice, Pancreatitis Other Gastrointestinal History: Chronic intermittent abdominal migraines Genitourinary History: Reports: UTI, Recurrent. Denies: Acute Renal Failure, Chronic Renal Insuffiency, Renal Calculus, Retention, Urinary, STD, Urinary Incontinence FAMILY REUNIFICATION SPECIALIST History: Reports: Dysfunctional Uterine Bleeding. Denies: Endometriosis , Fibroids, , Spontaneous : 0 LMP (Approximate): Other (See Below) Other FAMILY REUNIFICATION SPECIALIST History: History of ovarian cysts. Musculoskeletal History: Reports: Arthritis, Back Pain, Chronic, Osteoarthritis. Denies: Amputation, Fracture, Gout, Neck Pain, Chronic, RA, SLE Neurological History: Reports: Headaches, Chronic, Migraines, Seizure, Other ( See Below). Denies: Cerebral Aneurysms, Concussion, CVA, Head Trauma, MS, Neuropathy, Peripheral, Parkinson's, TIA, Vertigo Other Neuro History: Recurrent seizures starting at about age 15 with last seizure with secondary syncope on 06/23/18 and final diagnosis by EEG at [facility] in June 2018 with no recurrence since initiation of Keppra at that time. Psychiatric History: Reports: Anxiety, Depression, PTSD. Denies: Abuse, Victim of, ADD, Addiction, Psych Hospitalization(s), Psychosis, Suicide Attempt, Suicidal Ideation Endocrine/Metabolic History: Reports: Obesity/BMI 30+, Other (See Below). Denies: Diabetes, Type I, Diabetes, Type II, Diabetes Mellitus, Type 3c, Hypothyroidism, IDDM Other Endocrine/Metabolic History: Hypomagnesemia and hypoalbuminemia diagnosed in June 2018. Unknown type of sugar disorder-hypoglycemia versus glucose intolerance? Hematologic History: Reports: None. Denies: Anemia, Blood Transfusion(s), Iron Deficiency Immunologic History: Reports: None. Denies: AIDS, HIV, SLE Oncologic (Cancer) History: Reports: None. Denies: Basal Cell Carcinoma, Cervix , Hodgkin's Lymphoma, Leukemia, Lymphoma, Malignant Melanoma, Non-Hodgkin's Lymphoma, Ovarian, Squamous Cell Carcinoma, Uterine Dermatologic History: Reports: Cellulitis, Psoriasis, Other (See Below). 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 - Infectious Disease History Infectious Disease History: Reports: Chicken Pox, Shingles. Denies: C-Difficile , Measles, Meningitis, Mononucleosis, MRSA, Mumps, Pertussis (Whooping Cough), Rubella, Scarlet Fever, TB, VRE - Past Surgical History Head Surgeries/Procedures: Reports: None HEENT Surgical History: Reports: Myringotomy w Tube(s), Other (See Below). Denies: Adenoidectomy, Eye Surgery, Laser Surgery, LASIK, Naso-Sinus Surgery, Oral Surgery, Tonsillectomy Other HEENT Surgeries/Procedures: PE tubes as an then at age 8 and then at age 18. Cardiovascular Surgical History: Reports: None. Denies: Varicose Respiratory Surgical History: Reports: None. Denies: Thoracentesis GI Surgical History: Reports: None. Denies: Appendectomy, Colon, Colonoscopy, EGD, Hernia, Abdominal, Hernia, Inguinal, Hernia Repair/Other Female Surgical History: Reports: None. Denies: D&C, Hysterectomy, Oophorectomy, Salpingo-Oophorectomy, Tubal Ligation Endocrine Surgical History: Reports: None. Denies: Thyroid Biopsy Neurological Surgical History: Reports: None. Denies: C-Spine, Discectomy, Laminectomy, Lumbar Spine, Sacral Spine, Spinal Fusion, Thoracic Spine, Vertebroplasty Musculoskeletal Surgical History: Reports: None. Denies: Arthroscopic Procedure , Carpal Tunnel, Ganglion Cyst, Joint Replacement, ORIF, Shoulder Surgery Oncologic Surgical History: Reports: None Dermatological Surgical History: Reports: Other (See Below) Other Dermatological Surgeries/Procedures: Debridement of right foot abscess on 07/01/18 - Past Imaging History Past Imaging History: Reports: Cardiac Echo (Normal echocardiogram on 06/24/18 with ejection fraction of 60%.), CAT Scan (Last CT scan of the head on 06/23/18 with apparent multiple previous negative CT scans of the head), EEG (At [facility] in June 2018 with records not available.), Holter Monitor ( Holter monitor on at discharge from [facility] with results not available.), MRI (MRI of the brain on 06/25/18. MRI of the right foot on 08/02/18 and 06/30/18.), PFT (At age 8), Ultrasound (Bilateral renal ultrasound on 07/02/18. Pelvic ultrasound on 02/06/16.) Social & Family History - Family History Family Medical History: Unobtainable HEENT: Reports: None. Denies: Glaucoma, Macular Degeneration, Retinal Detachment Cardiac: Reports: Syncope, Other (See Below). Denies: Afib, Aneurysm, Arrhythmia, Blood Clots/VTE/DVT, CAD, Heart Failure, Heart Murmur, High Cholesterol, Hypertension, DC Other Cardiac Family History: Sister, maternal grandmother, and maternal aunt with history of recurrent syncopal episodes/fainting episodes possibly from seizures. Respiratory: Reports: Asthma, COPD, Sleep Apnea, Other (See Below). Denies: PE Other Respiratory Family Hisory: Asthma in maternal uncle. Maternal aunt with COPD and sleep apnea. GI: Reports: Irritable Bowel Syndrome, Other (See Below). Denies: Celiac Disease, Cholelithiasis, Colon Polyps, GERD, GI bleed, Inflammatory Bowel Disease, PUD Other GI Family History: Irritable bowel bowel syndrome in maternal aunt. : Reports: Dialysis, Renal Disease/Insufficiency Other Family History: Paternal grandfather with renal failure and dialysis. OBGYN: Reports: Endometriosis, Other (See Below). Denies: Recurrent Spontaneous Other OBGYN Family History: Maternal aunt with endometriosis. Musculoskeletal: Reports: None. Denies: Gout, RA, SLE Neurological: Reports: CVA, Migraines, Seizure, Other (See Below). Denies: Alzheimers Disease Other Neurological Family History: Maternal uncle with migraine headaches. Maternal uncle with CVA. Recurrent seizure disorder in mother with apparent childhood seizure disorder resolved by age 13. Maternal grandmother, sister and maternal aunt with possible seizure disorder and/or recurrent syncope as above. Psychiatric: Reports: Anxiety, Bipolar, Depression, Psych Hospitalization(s), Suicide Attempt, Other (See Below) Other Psychiatric Family History: Parents with anxiety depression disorder with mother having bipolar disorder and both parents having suicidal ideation and psychiatric hospitalization. Endocrine/Metabolic: Reports: Diabetes, type II, IDDM, Other (See Below). Denies: Hypothyroidism Other Endocrine/Metabolic Family History: Paternal also with IDDM. Hematologic: Reports: None. Denies: Anemia Immunologic: Reports: None. Denies: AIDS, HIV, SLE Dermatologic: Reports: Other (See Below) Other Dermatologic Family History: Maternal aunt and cousin with lichen planus. Oncologic: Reports: Breast, Lung, Other (See Below). Denies: Cervix, Colon, Hodgkin's Lymphoma, Leukemia, Lymphoma, Non-Hodgkin's Lymphoma, Ovarian, Skin, Uterine Other Oncologic Family History: Maternal Aunt with breast cancer. Maternal grandmother with lung cancer with history of tobacco use. - Tobacco Use Smoking Status *Q: Former Smoker Tobacco Use Within Last Twelve Months: No Years of Tobacco use: 1 Packs/Tins Daily: 0.1 Packs/Tins Daily Comment: Experimental age 17. Used Tobacco, but Quit: Yes Smoking Cessation Information Provided To Patient: No Second Hand Smoke Exposure: No Second Hand Smoke Education Provided: No - Caffeine Use Caffeine Use: Reports: None - Alcohol Use Alcohol Use History: No Days Per Week of Alcohol Use: 0 Number of Drinks Per Day: 1 Number of Drinks Per Day Comment: Usually wine 3 times per month. No previous DWIs, problems with alcohol abuse, etc. Total Drinks Per Week: 0 Alcohol Use in Last Twelve Months: Yes Alcohol Use Frequency: Rarely - Recreational Drug Use Recreational Drug Type: Reports: Marijuana/Hashish (Started at age 18 with previous daily use of one bowl per day with no use since June 2018 at time of her last seizure.). 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 ED EXAM, GENERAL - Physical Exam Exam: See Below Exam Limited By: No Limitations General Appearance: Alert, WD/WN, No Apparent Distress Eye Exam: Bilateral Eye: EOMI, Normal Inspection (No nystagmus. Patient wearing glasses), PERRL Ears: Normal External Exam, Normal Canal, Hearing Grossly Normal, Normal TMs Nose: Normal Inspection, Normal Mucosa, No Blood Throat/Mouth: Normal Lips, Normal Oropharynx, Normal Voice, No Airway Compromise. No: Normal Teeth (Impacted right lower premolar with some moderate gingiva swelling with no erythema, drainage, etc. Mild localized tenderness), Normal Gums (As above), Dysphagia, Perioral Cyanosis Head: Atraumatic, Normocephalic. No: Facial Swelling, Facial Tenderness, Sinus Tenderness Neck: Normal Inspection, Supple, Non-Tender, Full Range of Motion. No: Lymphadenopathy (L), Lymphadenopathy (R), Thyromegaly Respiratory/Chest: No Respiratory Distress, Lungs Clear, Normal Breath Sounds, No Accessory Muscle Use, Chest Non-Tender. No: Pleural Rub Cardiovascular: Normal Peripheral Pulses, Regular Rate, Rhythm, No Edema, No Gallop, No JVD, No Murmur, No Rub. No: Gallop/S3, Gallop/S4, Friction Rub Peripheral Pulses: 2+: Radial (L), Radial (R) GI/Abdominal: Normal Bowel Sounds, Soft, Non-Tender, No Organomegaly, No Distention, No Abnormal Bruit, No Mass. No: Guarding (Female) Exam: Deferred Rectal (Female) Exam: Deferred Back Exam: Normal Inspection, Full Range of Motion. No: CVA Tenderness (L), CVA Tenderness (R), Muscle Spasm Extremities: Normal Inspection, Normal Range of Motion, Non-Tender, No Pedal Edema, Normal Capillary Refill. No: Quinton's Sign Neurological: Alert, Oriented, CN II-XII Intact, Normal Cognition, Normal Gait, No Motor/Sensory Deficits Psychiatric: Normal Affect, Normal Mood Skin Exam: Warm, Dry, Intact, Normal Color, No Rash. No: Wound/Incision Lymphatic: No Adenopathy Course - Vital Signs Last Recorded V/S: Last Vital Signs Temp 36.8 C 01/24/19 16:38 Pulse 68 01/24/19 16:38 Resp 20 01/24/19 16:38 BP 122/63 01/24/19 16:38 Pulse Ox 100 01/24/19 16:38 Vital Signs - 24 hr 01/24/19 16:38 Temperature [ 36.8 C Oral] Pulse, 68 Peripheral [ Left Pulse Oximetry] Respiratory 20 Rate Blood Pressure 122/63 [Right Upper Arm] O2 Sat by Pulse 100 Oximetry - Orders/Labs/Meds Orders: Active Orders 24 hr Category Date Time Status Obtain Past Medical Record [OM.PC] Routine Oth 01/24/19 16:57 Active Labs: None Meds: None - Radiology Interpretation Free Text/Narrative:: None Departure - Departure Time of Disposition: 17:15 Disposition: Home, Self-Care 01 Condition: Good Clinical Impression: Mixed anxiety depressive disorder, Seizure disorder, Pain, dental, Bradycardia , First degree AV block - Discharge Information *PRESCRIPTION DRUG MONITORING PROGRAM REVIEWED*: Not Applicable *COPY OF PRESCRIPTION DRUG MONITORING REPORT IN PATIENT LUCÍA: Not Applicable Prescriptions: Amoxicillin 875 mg PO BID #20 tab Instructions: Dental Abscess, [id number] Forms: ED Department Discharge Additional Instructions: 1. Follow-up with your dentist JOSH as discussed 2. Tylenol 650 mg by mouth every 4 hours and/or OTC ibuprofen 2-3 tabs by mouth every 6 hours with food as directed./needed. You may stagger these medications for 48-72 hours only, which essentially means that you are receiving a pain medication about every 2 hours. 3. Listerine gargles four times per day, after meals and at bedtime, with additional Chloroseptic lozenges or spray as needed for 10 days and/or until symptoms resolve. 4. Immediately after this visit verify that your cellular telephone's voicemail has been activated and is empty. Also verify that your home telephone 's answering machine is operating properly and has space to receive messages. Note that it is sometimes necessary for us to be able to contact you at a later date to discuss your medical care. 5. Please remember that we are ALWAYS here for you and want to answer any questions you may have. Feel free to call the hospital any time and we call you back JOSH. - Problem List & Annotations (1) Pain, dental SNOMED Code(s): 73539421 Code(s): K08.89 - OTHER SPECIFIED DISORDERS OF TEETH AND SUPPORTING STRUCTURES Status: Acute Priority: High Onset Date: 01/24/19 Annotation/ Comment:: Impacted right lower molar tooth with some gingival swelling that no direct evidence of abscess. Various therapeutic options were discussed with the patient, who is requesting antibiotic therapy. She will follow-up with her dentist JOSH. Symptomatic relief as per discharge instructions. She did not wish to have a work excuse. (2) Bradycardia SNOMED Code(s): 78866947 Code(s): R00.1 - BRADYCARDIA, UNSPECIFIED Status: Chronic Priority: Medium Onset Date: 06/23/18 Annotation/Comment:: Note history of bradycardia and first-degree AV block possibly secondary to previous marijuana use with negative cardiac workup as above and no recurrence since discontinuation of her marijuana in June 2018 as above. No recent chest pain or anginal type symptoms. (3) First degree AV block SNOMED Code(s): 847940636 Code(s): I44.0 - ATRIOVENTRICULAR BLOCK, FIRST DEGREE Status: Chronic Priority: Medium Onset Date: 06/23/18 Annotation/Comment:: As above (4) Seizure disorder SNOMED Code(s): 894789311 Code(s): G40.909 - EPILEPSY, UNSP, NOT INTRACTABLE, WITHOUT STATUS EPILEPTICUS Status: Acute Priority: Medium Onset Date: 06/23/18 Annotation/Comment:: Currently under therapy with no recurrence since 06/23/18 since starting Keppra therapy as above. (5) Syncopal episodes SNOMED Code(s): 833994647 Code(s): R55 - SYNCOPE AND COLLAPSE Status: Chronic Priority: Medium Onset Date: 06/23/18 Annotation/Comment:: No recurrence since June 2018 as above. Qualifiers: Syncope type: unspecified Qualified Code(s): R55 - Syncope and collapse (6) Mixed anxiety depressive disorder SNOMED Code(s): 691098062 Code(s): F41.8 - OTHER SPECIFIED ANXIETY DISORDERS Status: Chronic Priority: Medium Annotation/Comment:: Currently under therapy. Stable by history. Continue to closely by her regular providers. - Problem List Review Problem List Initiated/Reviewed/Updated: Yes - My Orders Last 24 Hours: My Active Orders 01/24/19 16:57 Obtain Past Medical Record [OM.PC] Routine - Assessment/Plan Last 24 Hours: My Active Orders 01/24/19 16:57 Obtain Past Medical Record [OM.PC] Routine Assessment:: As above Plan: As above. Extensive precautions were given to the patient, who is in agreement with the treatment plan. See Patient Instructions for further treatment and plan.
== END 2019-01-24 17:14 | disposition home or self-care (01) ==
LOC: LL.ED 16:37
DX: K08.89 Other specified disorders of teeth and supporting structures (principal); I44.0 Atrioventricular block, first degree; F41.8 Other specified anxiety disorders; R00.1 Bradycardia, unspecified; G40.909 Epilepsy, unspecified, not intractable, without status epilepticus; Z87.891 Personal history of nicotine dependence; Z91.030 Bee allergy status; Z79.899 Other long term (current) drug therapy
CPT/HCPCS: 99282

== ENCOUNTER 2019-03-08 18:45 | Emergency (ER) | payer BC ==
--- NOTE | 2019-03-08 19:24 | EDM.PDOC ---
ED HPI GENERAL MEDICAL PROBLEM - General Chief Complaint: Skin Complaint Stated Complaint: Rash Time Seen by Provider: 03/08/19 19:10 Source of Information: Reports: Patient History Limitations: Reports: No Limitations - History of Present Illness INITIAL COMMENTS - FREE TEXT/NARRATIVE: Patient here due to hives. Started around 11am. Has been taking Benadryl 50mg , total of 3 doses since the hives developed. Pruritic. Was at work at the time. Is not aware of any new chemical or food exposures today/yesterday. Denies SOB/wheezing/nasal drainage/airway swelling. No other complaints. Treatments ORAL AND MAXILLOFACIAL SURGERY RESIDENT: Reports: Other (see below) Other Treatments ORAL AND MAXILLOFACIAL SURGERY RESIDENT: Benadryl, Calamine lotion Generalized Pain Score (Numeric/FACES): 2 - Related Data Allergies Allergy/AdvReac Type Severity Reaction Status Date / Time bee venom protein (honey bee) Allergy Anaphylactic Verified 03/08/19 18:46 Shock Home Meds: Home Meds Escitalopram [Lexapro] 10 mg PO BEDTIME 06/24/18 [History] levETIRAcetam [Keppra] 500 mg PO DAILY 01/24/19 [History] diphenhydrAMINE HCl [Benadryl] 50 mg PO Q6H PRN 03/08/19 [History] predniSONE 10 mg PO ASDIRECTED #15 tablet 03/08/19 [Rx] Past Medical History HEENT History: Reports: Allergic Rhinitis, Impaired Vision, Otitis Media, Other (See Below) Other HEENT History: Patient wears glasses with right-sided strabismus divergence corrected with glasses. Allergic rhinitis to "everything." Recurrent otitis media with surgeries as below. Cardiovascular History: Reports: Arrhythmia, Heart Murmur, Syncope, Other (See Below) Other Cardiovascular History: Recurrent syncope possibly secondary to undiagnosed seizure activity versus migraine equivalent with last episode in possible seizure on 06/23/18 with hospitalization in this facility. Note newly diagnosed first-degree AV block and moderate bradycardia at that time with negative cardiac workup as below. The patient does have a history of recurrent nonspecific probable functional murmur and possible sinus arrhythmia? She does not know her cholesterol status. Respiratory History: Reports: Bronchitis, Recurrent, Intubation, Previous, Other (See Below) Other Respiratory History: Reactive airway disease secondary to infection with apparent negative workup for asthma. 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 Musculoskeletal History: Reports: Arthritis, Back Pain, Chronic, Osteoarthritis Neurological History: Reports: Headaches, Chronic, Migraines, Seizure, Other ( See Below) Other Neuro History: Recurrent seizures starting at about age 15 with last seizure with secondary syncope on 06/23/18 and final diagnosis by EEG at [facility] in June 2018 with no recurrence since initiation of Keppra at that time. Psychiatric History: Reports: Anxiety, Depression, PTSD Endocrine/Metabolic History: Reports: Obesity/BMI 30+, Other (See Below) Other Endocrine/Metabolic History: Hypomagnesemia and hypoalbuminemia diagnosed in June 2018. Unknown type of sugar disorder-hypoglycemia versus glucose intolerance? 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 - Infectious Disease History Infectious Disease History: Reports: Chicken Pox, MRSA, Shingles - Past Surgical History Head Surgeries/Procedures: Reports: None HEENT Surgical History: Reports: Myringotomy w Tube(s), Other (See Below) Other HEENT Surgeries/Procedures: PE tubes as an infant then at age 8 and then at age 18. Cardiovascular Surgical History: Reports: None Respiratory Surgical History: Reports: None GI Surgical History: Reports: None Female Surgical History: Reports: None Endocrine Surgical History: Reports: None Neurological Surgical History: Reports: None Musculoskeletal Surgical History: Reports: None Oncologic Surgical History: Reports: None Dermatological Surgical History: Reports: Other (See Below) - Past Imaging History Past Imaging History: Reports: Cardiac Echo (Normal echocardiogram on 06/24/18 with ejection fraction of 60%.), CAT Scan (Last CT scan of the head on 06/23/18 with apparent multiple previous negative CT scans of the head), EEG (At [facility] in June 2018 with records not available.), Holter Monitor ( Holter monitor on at discharge from [facility] with results not available.), MRI (MRI of the brain on 06/25/18. MRI of the right foot on 08/02/18 and 06/30/18.), PFT (At age 8), Ultrasound (Bilateral renal ultrasound on 07/02/18. Pelvic ultrasound on 02/06/16.) Social & Family History - Family History Family Medical History: Unobtainable HEENT: Reports: None Cardiac: Reports: Syncope, Other (See Below) Other Cardiac Family History: Sister, maternal grandmother, and maternal aunt with history of recurrent syncopal episodes/fainting episodes possibly from seizures. Respiratory: Reports: Asthma, COPD, Sleep Apnea, Other (See Below) Other Respiratory Family Hisory: Asthma in maternal uncle. Maternal aunt with COPD and sleep apnea. GI: Reports: Irritable Bowel Syndrome, Other (See Below) Other GI Family History: Irritable bowel bowel syndrome in maternal aunt. : Reports: Dialysis, Renal Disease/Insufficiency Other Family History: Paternal grandfather with renal failure and dialysis. OBGYN: Reports: Endometriosis, Other (See Below) Other OBGYN Family History: Maternal aunt with endometriosis. Musculoskeletal: Reports: None Neurological: Reports: CVA, Migraines, Seizure, Other (See Below) Other Neurological Family History: Maternal uncle with migraine headaches. Maternal uncle with CVA. Recurrent seizure disorder in mother with apparent childhood seizure disorder resolved by age 13. Maternal grandmother, sister and maternal aunt with possible seizure disorder and/or recurrent syncope as above. Psychiatric: Reports: Anxiety, Bipolar, Depression, Psych Hospitalization(s), Suicide Attempt, Other (See Below) Other Psychiatric Family History: Parents with anxiety depression disorder with mother having bipolar disorder and both parents having suicidal ideation and psychiatric hospitalization. Endocrine/Metabolic: Reports: Diabetes, type II, IDDM, Other (See Below) Other Endocrine/Metabolic Family History: Paternal also with IDDM. Hematologic: Reports: None Immunologic: Reports: None Dermatologic: Reports: Other (See Below) Other Dermatologic Family History: Maternal aunt and cousin with lichen planus. Oncologic: Reports: Breast, Lung, Other (See Below) Other Oncologic Family History: Maternal Aunt with breast cancer. Maternal grandmother with lung cancer with history of tobacco use. 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 ED EXAM, SKIN/RASH Exam: See Below Exam Limited By: No Limitations General Appearance: Alert, WD/WN, No Apparent Distress Eye Exam: Bilateral Eye: EOMI, PERRL Ears: Normal External Exam Nose: No: Nasal Deformity, Nasal Swelling, Nasal Drainage Throat/Mouth: Normal Lips, Normal Voice, No Airway Compromise Head: Atraumatic, Other Neck: Supple Respiratory/Chest: No Respiratory Distress, Lungs Clear, Normal Breath Sounds, No Accessory Muscle Use Cardiovascular: Regular Rate, Rhythm, No Murmur GI/Abdominal: Soft (Female) Exam: Deferred Rectal (Female) Exam: Deferred Extremities: Non-Tender Neurological: Alert, Oriented, Normal Cognition, Normal Gait, No Motor/Sensory Deficits Psychiatric: Normal Affect, Normal Mood Skin: Warm, Dry, Other (generalized macular/papular erruption, confluent in areas, blanchable. ) Characteristics: Maculopapular, Confluent, Urticarial Associated features: No: Tenderness, Swelling, Inflammation, Crusting, Weeping Course - Vital Signs Last Recorded V/S: Last Vital Signs Temp 36.9 C 03/08/19 18:58 Pulse 58 L 03/08/19 18:58 Resp 15 03/08/19 18:58 BP 108/55 L 03/08/19 18:58 Pulse Ox 100 03/08/19 18:58 - Orders/Labs/Meds Meds: Medications Discontinued Medications Generic Name Dose Route Start Last Admin Trade Name Logan PRN Reason Stop Dose Admin Famotidine 20 mg 03/08/19 19:29 03/08/19 19:51 Pepcid PO 03/08/19 19:30 20 mg ONETIME ONE Administration Methylprednisolone Sodium Succinate 125 mg 03/08/19 19:18 03/08/19 19:25 Solu-Medrol IM 03/08/19 19:19 125 mg ONETIME ONE Administration - Re-Assessments/Exams Free Text/Narrative Re-Assessment/Exam: 03/08/19 19:24 Rash appears consistent with allergic reaction. No known new exposures. Patient had hives years ago, no specific trigger noted at that time. IM solumedrol given. Observed. Plan: To continue Benadryl. PO Prednisone prescribed. Precautions reviewed. May be helpful to keep diary for food/chemical exposures. To return to ER if symptoms worsen, especially if any shortness of breath/ respiratory tract swelling is noted. Departure - Departure Time of Disposition: 20:20 Disposition: Home, Self-Care 01 Condition: Good Clinical Impression: Urticaria - Discharge Information *PRESCRIPTION DRUG MONITORING PROGRAM REVIEWED*: Not Applicable *COPY OF PRESCRIPTION DRUG MONITORING REPORT IN PATIENT LUCÍA: Not Applicable Prescriptions: predniSONE 10 mg PO ASDIRECTED #15 tablet Instructions: Angioedema, [id number], Hives, [id number] Referrals: Valarie Lowe PA-C [Primary Care Provider] - Forms: ED Department Discharge, ED Return to Work/School Form Additional Instructions: Continue Benadryl 50mg every 4 hours as needed, up to maximum of 300mg taken per 24 hours. Take Prednisone as directed starting tomorrow. Observe closely for any identifiable change in your environment--such as new learning and development director of you medications, new chemicals at home or work, new food. However, as discussed, it is possible to become allergic to something that you have previously eaten/ used without issue. Follow up if symptoms have not improved overall within 48 hours. Follow up right away if you notice any shortness of breath/swelling of tongue/lips/airway developing (call 911) You may also take Zantac or Pepcid along with the Benadryl as these two medications also help block histamine.
[2019-03-08] MEDS: methylPREDNISolone Sodium Succinate 125 MG/2 ML SDV IM ONE (19:25)
[2019-03-08] MEDS: Famotidine 20 MG Tab PO ONE (19:51)
== END 2019-03-08 20:00 | disposition home or self-care (01) ==
LOC: LL.ED 18:45
DX: L50.9 Urticaria, unspecified (principal); F41.9 Anxiety disorder, unspecified; F32.9 Major depressive disorder, single episode, unspecified; Z79.899 Other long term (current) drug therapy; Z91.030 Bee allergy status
CPT/HCPCS: 96372; 99282; A9270-GY; J2930

== ENCOUNTER 2021-01-19 08:25 | Emergency (ER) | payer OTHER ==
--- NOTE | 2021-01-19 08:56 | EDM.PDOC ---
ED HPI GENERAL MEDICAL PROBLEM - General Chief Complaint: ENT Problem Stated Complaint: COUGH, SORE THROAT Time Seen by Provider: 01/19/21 08:50 Source of Information: Reports: Patient, Old Records ([facility] EMR. No paper hospital chart available.), Other ([facility] EMR reviewed on 01/24/[address] [facility] EMR reviewed on 06/23/2018.) History Limitations: Reports: No Limitations - History of Present Illness INITIAL COMMENTS - FREE TEXT/NARRATIVE: The patient drove herself to the emergency room via private automobile for evaluation of a chronic nonproductive cough, which has been present for the last 2.5-3 weeks. She denies any known exposure to infection and has had 3 negative COVID-19 evaluations at work during the last 3 weeks, including about 2 days a go. She did receive an influenza booster this season. Her seasonal allergies have been stable with history of borderline asthma as a child as below. The patient also denies any recent fever, wheezing, dyspnea, etc.. Her symptoms have been refractory to OTC Mucinex DM. No recent history of abdominal pain, heartburn, nausea, diarrhea, melena, gross hematochezia, or any food intolerance, including fatty foods, etc.. She denies any gross hematuria, colic, or other UTI symptoms. The patient denies any chest pain/pressure, heart flutter, dizziness, orthostasis, orthopnea, diaphoresis, paresthesias, recent decreased exercise tolerance, or any other anginal-type symptoms. She denies any current pain or discomfort. Onset: Gradual, Other (As above) Duration: Week(s): (As above), Getting Worse, Intermittent Location: Reports: Other (No pain) Quality: Reports: Same as Previous Episode Severity: Moderate (Cough) Improves with: Reports: None Worsens with: Reports: None Context: Reports: Other (As above). Denies: Sick Contact, Trauma Associated Symptoms: Reports: Cough. 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 Denies: Cataract, Glaucoma, Hard of Hearing, Macular Degeneration, Retinal Detachment Other HEENT History: Patient wears glasses with right-sided strabismus divergence corrected with glasses. Allergic rhinitis to "everything." Recurrent otitis media with surgeries as below. Cardiovascular History: Reports: Arrhythmia, Heart Murmur, Syncope, Other (See Below). Denies: Afib, Aneurysm, Blood Clots/VTE/DVT, CAD, Heart Failure, High Cholesterol, Hypertension, GA, PVD Other Cardiovascular History: Recurrent syncope possibly secondary to undiagnosed seizure activity versus migraine equivalent with last episode in possible seizure on 06/23/18 with hospitalization in this facility. Note newly diagnosed first-degree AV block and moderate bradycardia at that time with negative cardiac workup as below. The patient does have a history of recurrent nonspecific probable functional murmur and possible sinus arrhythmia? She does not know her cholesterol status. Respiratory History: Reports: Bronchitis, Recurrent, Intubation, Previous, Other (See Below). Denies: Asthma, COPD, Intubation, Difficult, Pneumonia, Recurrent, SOB, TB Other Respiratory History: Reactive airway disease secondary to infection with apparent negative workup for asthma. Gastrointestinal History: Reports: Other (See Below). Denies: Bowel Obstruction, Celiac Disease, Cholelithiasis, Chronic Constipation, Chronic Diarrhea, Colon Polyp, Diverticulosis, Fecal Incontinence, Gastritis, GERD, GI Bleed, Hepatitis, Inflammatory Bowel Disease, Irritable Bowel Syndrome, Jaundice, Pancreatitis, PUD Other Gastrointestinal History: Chronic intermittent abdominal migraines Genitourinary History: Reports: UTI, Recurrent. 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 Denies: Endometriosis, Fibroids, PID, , Spontaneous : 0 Para: 0 LMP (Approximate): Other (See Below) Other TEMPLATE FITTER History: Normal LMP 3 weeks ago. History of ovarian cysts. Musculoskeletal History: Reports: Arthritis, Back Pain, Chronic, Osteoarthritis, Other (See Below). Denies: Amputation, Fracture, Gout, Neck Pain, Chronic, RA, SLE Other Musculoskeletal History: Left knee medial meniscal tear in May 2020 requiring surgery as below. Neurological History: Reports: Headaches, Chronic, Migraines, Seizure, Other (See Below). Denies: Cerebral Aneurysms, Concussion, CVA, Head Trauma, MS, Neuropathy, Peripheral, Parkinson's, TIA, Vertigo Other Neuro History: [place] to stop recurrent seizures starting at about age 15 with last seizure with secondary syncope on 06/23/18 and final diagnosis by EEG at [facility] in June 2018 with no recurrence since initiation of Keppra at that time. Note that the patient did stop Keppra after her arthroscopic left knee surgery in May 2020 with no seizure recurrence since that time. Psychiatric History: Reports: Addiction, Anxiety, Depression, PTSD, Other (See Below). Denies: Abuse, Victim of, ADD, ADHD, Psych Hospitalization(s), Psychosis, Suicide Attempt, Suicidal Ideation Other Psychiatric History: Previous illicit drug use as below. Endocrine/Metabolic History: Reports: Hypomagnesemia, Obesity/BMI 30+, Other (See Below). Denies: Hypothyroidism Other Endocrine/Metabolic History: Hypoalbuminemia diagnosed in June 2018. Unknown type of sugar disorder-hypoglycemia versus glucose intolerance? Hematologic History: Reports: None. Denies: Anemia, Blood Transfusion(s), Iron Deficiency Immunologic History: Reports: None. Denies: AIDS, SLE Oncologic (Cancer) History: Reports: None. Denies: Basal Cell Carcinoma, B reast, Cervix, Colon, Hodgkin's Lymphoma, Leukemia, Lymphoma, Malignant Melanoma, Non-Hodgkin's Lymphoma, Ovarian, Squamous Cell Carcinoma, Uterine Dermatologic History: Reports: Cellulitis, Psoriasis, Other (See Below). 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 - Infectious Disease History Infectious Disease History: Reports: Chicken Pox, MRSA, Shingles. Denies: C- Difficile, Measles, Meningitis, Mononucleosis, Multidrug-Resistant Gram- Negative, Other, Mumps, Novel Coronavirus, Pertussis (Whooping Cough), Rheumatic Fever, Rubella, SARS, Scarlet Fever, TB, VRE - Past Surgical History Head Surgeries/Procedures: Reports: None HEENT Surgical History: Reports: Myringotomy w Tube(s), Other (See Below). Denies: Adenoidectomy, Cataract Surgery, Eye Surgery, LASIK, Naso-Sinus Surgery, Oral Surgery, Tonsillectomy Other HEENT Surgeries/Procedures: PE tubes as an then at age 8 and then at age 18. Cardiovascular Surgical History: Reports: None. Denies: Varicose, Vascular Surgery Respiratory Surgical History: Reports: None. Denies: Thoracentesis GI Surgical History: Reports: None. Denies: Appendectomy, Cholecystectomy, Colonoscopy, EGD, Hernia, Abdominal, Hernia, Inguinal, Hernia Repair/Other Female Surgical History: Reports: None. Denies: Tubal Ligation Endocrine Surgical History: Reports: None. Denies: Thyroid Biopsy Neurological Surgical History: Reports: None. Denies: C-Spine, Discectomy, Laminectomy, Lumbar Spine, Sacral Spine, Spinal Fusion, Thoracic Spine, Vertebroplasty Musculoskeletal Surgical History: Reports: None, Arthroscopic Knee, Arthroscopic Procedure, Other (See Below). Denies: Carpal Tunnel, Ganglion Cyst, Joint Replacement, ORIF, Shoulder Surgery Other Musculoskeletal Surgeries/Procedures:: Left knee arthroscopic medial meniscal tear repair in May 2020 at [facility]. Oncologic Surgical History: Reports: None Dermatological Surgical History: Reports: Other (See Below) Other Dermatological Surgeries/Procedures: Debridement of right foot abscess on 07/01/2018. - Past Imaging History Past Imaging History: Reports: Cardiac Echo (Normal echocardiogram on 06/24/18 with ejection fraction of 60%.), CAT Scan (Last CT scan of the head on 06/23/18 with apparent multiple previous negative CT scans of the head), EEG (At [facility] in June 2018 with records not available.), Holter Monitor (Holter monitor on at discharge from [facility] with results not available.), MRI (MRI of the left knee on 05/07/2020. MRI of the brain on 06/25/18. MRI of the right foot on 08/02/18 and 06/30/18.), PFT (At age 8), Ultrasound (Bilateral renal ultrasound on 07/02/18. Pelvic ultrasound on 02/06/16.) Social & Family History - Family History HEENT: Reports: None. Denies: Glaucoma, Macular Degeneration, Retinal Detachment Cardiac: Reports: Syncope, Other (See Below). Denies: Afib, Aneurysm, Arrhythmia, Blood Clots/VTE/DVT, CAD, Heart Failure, High Cholesterol, Hypertension, GA, PVD/COD Other Cardiac Family History: Sister, maternal grandmother, and maternal aunt with history of recurrent syncopal episodes/fainting episodes possibly from seizures. Respiratory: Reports: Asthma, COPD, Sleep Apnea, Other (See Below). Denies: PE, Pneumothorax Other Respiratory Family Hisory: Asthma in maternal uncle. Maternal aunt with COPD and sleep apnea. GI: Reports: Irritable Bowel Syndrome, Other (See Below). Denies: Celiac Disease, Cholelithiasis, Colon Polyps, GERD, GI bleed, Inflammatory Bowel Disease, PUD Other GI Family History: Irritable bowel bowel syndrome in maternal aunt. : Reports: Dialysis, Renal Disease/Insufficiency. Denies: Renal Calculus Other Family History: Paternal grandfather with renal failure and dialysis. OBGYN: Reports: Endometriosis, Other (See Below). Denies: Dysfunctional uterine bleeding, Fibroids Other OBGYN Family History: Maternal aunt with endometriosis. Musculoskeletal: Reports: None. Denies: Arthritis, Gout, Osteoarthritis, RA, SLE Neurological: Reports: CVA, Migraines, Seizure, Other (See Below). Denies: A lzheimers Disease, Cerebral Aneurysms, Dementia, MS, Parkinson's, TIA Other Neurological Family History: Maternal uncle with migraine headaches. Maternal uncle with CVA. Recurrent seizure disorder in mother with apparent childhood seizure disorder resolved by age 13. Maternal grandmother, sister and maternal aunt with possible seizure disorder and/or recurrent syncope as above. Psychiatric: Reports: Anxiety, Bipolar, Depression, Psych Hospitalization(s), Suicide Attempt, Other (See Below). Denies: Abuse, Victim of, ADD, ADHD, PTSD Other Psychiatric Family History: Parents with anxiety depression disorder with mother having bipolar disorder and both parents having suicidal ideation and psychiatric hospitalization. Endocrine/Metabolic: Reports: Diabetes, type II, IDDM, Other (See Below). Denies: Diabetes, Gestational, Diabetes, Type I, Diabetes Mellitus, Type 3c, Hypothyroidism Other Endocrine/Metabolic Family History: Paternal also with IDDM. Hematologic: Reports: None. Denies: Anemia, SLE Immunologic: Reports: None. Denies: AIDS, HIV, SLE Dermatologic: Reports: Other (See Below). Denies: Eczema, Psoriasis Other Dermatologic Family History: Maternal aunt and cousin with lichen planus. Oncologic: Reports: Breast, Lung, Other (See Below). Denies: Cervix, Colon, Hodgkin's Lymphoma, Leukemia, Lymphoma, Non-Hodgkin's Lymphoma, Ovarian, Skin, Uterine Other Oncologic Family History: Maternal Aunt with breast cancer. Maternal grandmother with lung cancer with history of tobacco use. - Tobacco Use Tobacco Use Status *Q: Former Tobacco User Tobacco Use Within Last Twelve Months: No Years of Tobacco use: 1 Packs/Tins Daily: 0.1 Packs/Tins Daily Comment: Experimental at age 17. Used Tobacco, but Quit: Yes Smoking Cessation Information Provided To Patient: No Second Hand Smoke Exposure: Yes Source of Second Hand Smoke Exposure: Patient's is trying to quit vaping and has switched to chewing tobacco. Second Hand Smoke Education Provided: Yes - Caffeine Use Caffeine Use: Reports: Soda (1 soda per month). Denies: Coffee, Energy Drinks, Tea - Alcohol Use Alcohol Use History: Yes Days Per Week of Alcohol Use: 0 Number of Drinks Per Day: 1 Number of Drinks Per Day Comment: Usually wine 3 times per month. No previous DWIs, problems with alcohol abuse, etc. Total Drinks Per Week: 0 Alcohol Use in Last Twelve Months: Yes - Recreational Drug Use Recreational Drug Use: Yes Drug Use in Last 12 Months: No Recreational Drug Type: Reports: Marijuana/Hashish (Started at age 18 with previous daily use of 1 bowl per day with no use since June 2018 at time of her last seizure.). 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 ED EXAM, GENERAL - Physical Exam Exam: See Below Exam Limited By: No Limitations General Appearance: Alert, WD/WN, No Apparent Distress Eye Exam: Bilateral Eye: EOMI, Normal Inspection (Patient is wearing glasses. No vertigo or nystagmus.), PERRL Ears: Normal External Exam, Normal Canal, Hearing Grossly Normal, Normal TMs Nose: Normal Inspection, Normal Mucosa, No Blood Throat/Mouth: Normal Inspection, Normal Lips, Normal Teeth, Normal Gums, Normal Oropharynx, Normal Voice, No Airway Compromise. No: Dysphagia, Perioral Cyanosis Head: Atraumatic, Normocephalic. No: Facial Swelling, Facial Tenderness, Sinus Tenderness Neck: Normal Inspection, Supple, Non-Tender, Full Range of Motion. No: Lymphadenopathy (L), Lymphadenopathy (R), Thyromegaly Respiratory/Chest: No Respiratory Distress, Lungs Clear, Normal Breath Sounds, No Accessory Muscle Use, Chest Non-Tender. No: Accessory Muscle Use, Retractions Cardiovascular: Normal Peripheral Pulses, No Edema, No Gallop, No JVD, No Murmur, No Rub, Bradycardia (Borderline with regular rhythm). No: Gallop/S3, Gallop/S4, Friction Rub Peripheral Pulses: 2+: Radial (L), Radial (R) GI/Abdominal: Normal Bowel Sounds, Soft, Non-Tender, No Organomegaly, No Distention, No Abnormal Bruit, No Mass. No: Guarding (Female) Exam: Deferred Rectal (Female) Exam: Deferred Back Exam: Normal Inspection, Full Range of Motion. No: CVA Tenderness (L), CVA Tenderness (R), Muscle Spasm Extremities: Normal Inspection, Normal Range of Motion, Non-Tender, No Pedal Edema, Normal Capillary Refill. No: Quinton's Sign Neurological: Alert, Oriented, CN II-XII Intact, Normal Cognition, Normal Gait, No Motor/Sensory Deficits Psychiatric: Normal Affect, Normal Mood Skin Exam: Warm, Dry, Intact, Normal Color, No Rash. No: Diaphoretic, Wound/Incision Lymphatic: No Adenopathy Course - Vital Signs Last Recorded V/S: Last Vital Signs Temp 36.6 C 01/19/21 08:25 Pulse 58 L 01/19/21 08:25 Resp 20 01/19/21 08:25 BP 124/63 01/19/21 08:25 Pulse Ox 100 01/19/21 08:25 Vital Signs - 24 hr 01/19/21 08:25 Temperature [ 36.6 C Temporal] Pulse, 58 L Peripheral [ Left Pulse Oximetry] Respiratory 20 Rate Blood Pressure 124/63 [Left Upper Arm ] O2 Sat by Pulse 100 Oximetry - Orders/Labs/Meds Orders: Active Orders 24 hr Category Date Time Status CXR [Chest 2V] [CR] Stat Exams 01/19/21 08:39 Taken Labs: Laboratory Tests 01/19/21 01/19/21 Range/Units 08:40 08:40 WBC 7.1 (4.0-10.2) K/uL RBC 4.59 (3.77-5.09) M/uL Hgb 13.7 (11.7-15.5) g/dL Hct 41.1 (34.0-46.0) % MCV 89.5 (84.0-98.0) fL MCH 29.8 (28.2-33.3) pg MCHC 33.3 (31.7-36.0) g/dL RDW 13.0 (11.2-14.1) % Plt Count 280 (150-350) K/uL Neut % (Auto) 58.9 (45.0-80.0) % Lymph % (Auto) 29.7 (10.0-50.0) % Bremer % (Auto) 9.3 (2.0-14.0) % Eos % (Auto) 1.8 (0.0-5.0) % Baso % (Auto) 0.3 (0.0-2.0) % Neut # (Auto) 4.20 (1.40-7.00) K/uL Lymph # (Auto) 2.12 (0.50-3.50) K/uL Bremer # (Auto) 0.66 (0.00-1.00) K/uL Eos # (Auto) 0.13 (0.00-0.50) K/uL Baso # (Auto) 0.02 (0.00-0.20) K/uL Sodium 138 (136-145) mmol/L Potassium 3.9 (3.5-5.1) mmol/L Chloride 104 (98-107) mmol/L Carbon Dioxide 26.8 (21.0-32.0) mmol/L BUN 9 (7-18) mg/dL Creatinine 0.58 (0.51-1.17) mg/dL Est Cr Clr Drug Dosing 117.27 mL/min Estimated GFR (MDRD) > 60 mL/min Glucose 88 (70-99) mg/dL Calcium 8.5 (8.5-10.1) mg/dL Total Bilirubin 0.6 (0.2-1.0) mg/dL AST 15 (15-37) U/L ALT 20 (12-78) U/L Alkaline Phosphatase 62 (46-116) IU/L Total Protein 7.3 (6.4-8.2) g/dL Albumin 3.8 (3.4-5.0) g/dL Meds: Medications Discontinued Medications Generic Name Dose Route Start Last Admin Trade Name Freq PRN Reason Stop Dose Admin Methylprednisolone Acetate 80 mg 01/19/21 09:09 01/19/21 09:12 Methylprednisolone Acetate 80 Mg/Ml Sdv IM 01/19/21 09:10 80 mg ONETIME ONE Administration - Radiology Interpretation Free Text/Narrative:: Chest x-ray, PA and lateral, shows evidence of mild to moderate pulmonary obstructive disease with no pulmonary infiltrates, pneumothorax, cardiomegaly, CHF, etc. Departure - Departure Time of Disposition: 09:25 Disposition: Home, Self-Care 01 Condition: Good Clinical Impression: Mixed anxiety depressive disorder, Bradycardia, Tobacco abuse counseling, Cough - Discharge Information *PRESCRIPTION DRUG MONITORING PROGRAM REVIEWED*: Not Applicable *COPY OF PRESCRIPTION DRUG MONITORING REPORT IN PATIENT LUCÍA: Not Applicable Instructions: Cough, Adult, [id number], Electronic Cigarette Information, Asthma, Adult, [id number], Smokeless Tobacco Information, Adult Referrals: PCP,None [Primary Care Provider] - Forms: ED Department Discharge, ED Return to Work/School Form Additional Instructions: 1. Followup with your regular provider in 10-14 days as directed with PFTs, pre and post(lung function study, recommended to be scheduled at that time. Notify your regular provider that she did receive an IM Depo-Medrol injection during today's emergency room visit. Bring these discharge instructions with you to that visit. 2. Tylenol 650 mg by mouth every 4 hours and/or OTC ibuprofen 2-3 tabs by mouth every 6 hours with food as directed./needed. You may stagger these medications for 48-72 hours only, which essentially means that you are receiving a pain medication about every 2 hours. 3. Hygiene precautions as discussed 4. Stop all tobacco exposure JOSH as directed with counselling, information, etc. given at discharge. 5. Work excuse- See Form 6. Immediately after this visit verify that your cellular telephone's voicemail has been activated and is empty. Also verify that your home telephone's answering machine is operating properly and has space to receive messages. Note that it is sometimes necessary for us to be able to contact you at a later date to discuss your medical care. 7. Please remember that we are ALWAYS here for you and want to answer any questions you may have. Feel free to call the hospital any time and we call you back JOSH. Sepsis Event Note (ED) - Evaluation Sepsis Screening Result: No Definite Risk - Focused Exam Vital Signs: Vital Signs Temp Pulse Resp BP Pulse Ox 01/19/21 08:25 36.6 C 58 L 20 124/63 100 - Problem List & Annotations (1) Cough SNOMED Code(s): 71887614 Code(s): R05 - COUGH Status: Acute Priority: High Current Visit: Yes Annotation/Comment:: Chronic cough with distant history of childhood reactive airway disease with negative PFTs for asthma at age 8. She does have seasonal allergies. Note previous influenza immunization with recent multiple negative COVID-19 tests, including 2 days ago as above. No evidence of infection. IM Depo-Medrol was given. Close follow-up by regular provider including recommended PFTs. Tobacco, vaping, etc. exposure was extensively discussed. Work excuse was provided. Otherwise continue OTC symptomatic relief as before. Hygiene precautions were discussed. (2) Tobacco abuse counseling SNOMED Code(s): 691229059, 308853744, 534191416 Code(s): Z71.6 - TOBACCO ABUSE COUNSELING Status: Chronic Priority: Medium Current Visit: Yes Annotation/Comment:: Chewing tobacco and vaping information provided for the patient's . (3) Mixed anxiety depressive disorder SNOMED Code(s): 496668082 Code(s): F41.8 - OTHER SPECIFIED ANXIETY DISORDERS Status: Chronic Prior ity: Medium Current Visit: Yes Annotation/Comment:: Not currently under therapy. Stable by history. Continue to closely by her regular providers. (4) Bradycardia SNOMED Code(s): 84451622 Code(s): R00.1 - BRADYCARDIA, UNSPECIFIED Status: Chronic Priority: Medium Current Visit: Yes Onset Date: 06/23/18 Annotation/Comment:: Note h istory of bradycardia and first-degree AV block possibly secondary to previous marijuana use with negative cardiac workup as above and no recurrence since discontinuation of her marijuana in June 2018 as above. No recent chest pain or anginal type symptoms. - Problem List Review Problem List Initiated/Reviewed/Updated: Yes - Assessment/Plan Assessment:: As above. Plan: As above. Extensive precautions were given to the patient, who is in agreement with the treatment plan. See Patient Instructions for further treatment and plan.
[2021-01-19] MEDS: methylPREDNISolone Acetate 80 MG/ML SDV IM ONE (09:12)
[2021-01-19 09:18] LABS: CHLORIDE,CL 104 mmol/L (98-107); SODIUM,NA 138 mmol/L (136-145)
== END 2021-01-19 09:23 | disposition home or self-care (01) ==
LOC: LL.ED 08:25
DX: R05 Cough (principal); R00.1 Bradycardia, unspecified; F41.8 Other specified anxiety disorders; Z87.891 Personal history of nicotine dependence; Z71.6 Tobacco abuse counseling; Z91.030 Bee allergy status; Z88.1 Allergy status to other antibiotic agents
CPT/HCPCS: 36415; 71046; 80053; 85025; 96372; 99283; 99283-25; J1040

== ENCOUNTER 2022-04-22 16:32 | Emergency (ER) | payer OTHER ==
[2022-04-22 17:33] LABS: ANION GAP 8.1 meq/L (7-15)
== END 2022-04-22 18:10 | disposition home or self-care (01) ==
LOC: LL.ED 16:32
DX: R10.11 Right upper quadrant pain (principal); E66.9 Obesity, unspecified; Z68.32 Body mass index [BMI] 32.0-32.9, adult; Z88.1 Allergy status to other antibiotic agents; Z91.030 Bee allergy status; Z79.899 Other long term (current) drug therapy
CPT/HCPCS: 36415; 74176; 80053; 81001; 85025; 99284; 99284-25